=== PATIENT | female | born 1975 | race American Indian/Alaskan Native ===

== ENCOUNTER 2017-04-23 21:42 | Inpatient (IN) | payer MEDICAID ==
[2017-04-23 22:13] LABS: Basophils % (Auto) 0.7 % (0.0-1.8); Eosinophils % (Auto) 1.8 % (0.0-4.3); Hematocrit 31.9 % (30.3-42.9); Hemoglobin 10.4 gm/dl (10.1-14.3); Mean Corpuscular HGB Conc 33 % (30-34); Mean Corpuscular Hemoglobin 26 pg (28-32); Mean Corpuscular Volume 80 fl (79-97); Platelet Count 351 K/mm3 (140-440); Red Cell Distribution Width 15.3 % (13.2-15.2); White Blood Count 5.5 K/mm3 (4.5-11.0)
[2017-04-23 22:18] LABS: INR 0.92 (0.87-1.13); Partial Thromboplastin Time 28.5 Sec. (24.2-36.6)
[2017-04-23 22:31] LABS: Creatine Kinase 63 units/L (30-135)
[2017-04-23 22:36] LABS: Creatine Kinase MB < 1.0 ng/mL (0.0-4.0)
--- NOTE | 2017-04-23 22:41 | Emergency Department Report ---
ED General Adult HPI - General Chief complaint: Neuro Symptoms/Deficit Stated complaint: BODY PAIN Time Seen by Provider: 04/23/17 22:18 Source: patient, EMS (ems notes not available at time of chart dictation), RN notes reviewed, old records reviewed Mode of arrival: Wheelchair Limitations: Physical Limitation - History of Present Illness Initial comments: This is a 41-year-old female. She has a past medical history of multiple sclerosis, chronic left-sided weakness, noncompliant with outpatient follow-up, seizure disorder, diabetes, hypertension. As per review of old charts, patient has a chronic left-sided cranial nerve 4 palsy/dysfunction, and chronic left-sided weakness and numbness. The patient is brought to the hospital by EMS for seizure versus syncope versus sclerosis flare and exacerbation. The patient reports that at 6:00 in the morning, her legs give out on her, and she feels like her left side is weaker than her right side, and weaker than baseline. The patient further reports that her symptoms started at 6:00 in the morning, not in o'clock in the evening. She also describes visual loss in left eye. She denies chest pain, shortness of breath, abdominal pain, irritative/ obstructive urinary symptoms. -: Gradual Location: eyes, left, upper extremity, lower extremity Consistency: constant Improves with: none Worsens with: none Associated Symptoms: weakness - Related Data Home Medications Medication Instructions Recorded Confirmed Last Taken Dimethyl Fumarate [Tecfidera] 1 each PO 01/20/14 01/20/14 Unknown FLUoxetine HCL [PROzac] 40 mg PO QDAY 01/20/14 01/20/14 Unknown predniSONE [Deltasone] 01/20/14 01/20/14 Unknown Previous Rx's Medication Instructions Recorded Last Taken Type Triamter/Hctz 37.5-25 mg 1 tab PO QDAY #30 tablet 01/22/14 Unknown Rx [Maxzide-25] traZODone [Desyrel] 100 mg PO HS #20 tablet 01/22/14 Unknown Rx HYDROcodone/APAP 5-325 [[place]amar 1 each PO Q8H PRN #15 tablet 02/21/17 Unknown Rx 5-325 mg TAB] Levofloxacin [Levaquin TAB] 500 mg PO Q24HR #3 tablet 02/21/17 Unknown Rx levETIRAcetam [Keppra TAB] 1,500 mg PO BID #180 tablet 02/21/17 Unknown Rx Allergies Allergy/AdvReac Type Severity Reaction Status Date / Time Penicillins Allergy Rash Verified 01/20/14 03:00 ED Review of Systems ROS: Stated complaint: BODY PAIN Other details as noted in HPI Constitutional: malaise Eyes: vision change ENT: denies: throat pain Respiratory: denies: cough Cardiovascular: denies: chest pain Gastrointestinal: denies: abdominal pain Genitourinary: denies: dysuria Musculoskeletal: back pain Neurological: weakness, numbness, abnormal gait ED Past Medical Hx - Past Medical History Previous Medical History?: Yes Hx Hypertension: Yes Hx Congestive Heart Failure: No Hx Diabetes: Yes Hx Seizures: Yes Hx Psychiatric Treatment: Yes (Schizophrenia) Hx Asthma: No Hx COPD: No Hx HIV: No Additional medical history: MS - Social History Smoking Status: Former Smoker - Medications Home Medications: Home Medications Medication Instructions Recorded Confirmed Last Taken Type Dimethyl Fumarate [Tecfidera] 1 each PO 01/20/14 01/20/14 Unknown History FLUoxetine HCL [PROzac] 40 mg PO QDAY 01/20/14 01/20/14 Unknown History predniSONE [Deltasone] 01/20/14 01/20/14 Unknown History Triamter/Hctz 37.5-25 mg 1 tab PO QDAY #30 tablet 01/22/14 Unknown Rx [Maxzide-25] traZODone [Desyrel] 100 mg PO HS #20 tablet 01/22/14 Unknown Rx HYDROcodone/APAP 5-325 [[place]amar 1 each PO Q8H PRN #15 tablet 02/21/17 Unknown Rx 5-325 mg TAB] Levofloxacin [Levaquin TAB] 500 mg PO Q24HR #3 tablet 02/21/17 Unknown Rx levETIRAcetam [Keppra TAB] 1,500 mg PO BID #180 tablet 02/21/17 Unknown Rx ED Physical Exam - General Limitations: Physical Limitation General appearance: alert, in no apparent distress - Head Head exam: Present: atraumatic, normocephalic - Eye Eye exam: Present: normal appearance, other (extraocular movements are intact in the right eye. When I examine the left eye, the patient closes it.There is a cranial nerve palsy noted in the left eye. Patient reports no visual acuity intact to finger counting, color perception or reading and a close distance in the left eye.) - ENT ENT exam: Present: normal orophraynx, mucous membranes moist - Neck Neck exam: Present: normal inspection, full ROM. Absent: tenderness, meningismus - Respiratory Respiratory exam: Present: normal lung sounds bilaterally. Absent: respiratory distress, wheezes, rales, rhonchi, stridor, chest wall tenderness - Cardiovascular Cardiovascular Exam: Present: regular rate, normal rhythm, normal heart sounds. Absent: bradycardia, tachycardia, irregular rhythm, systolic murmur, diastolic murmur, rubs, gallop - GI/Abdominal GI/Abdominal exam: Present: soft, normal bowel sounds. Absent: distended, tenderness, guarding, rebound, rigid, pulsatile mass - Extremities Exam Extremities exam: Present: normal inspection, normal capillary refill. Absent: tenderness - Back Exam Back exam: Present: normal inspection. Absent: tenderness - Neurological Exam Neurological exam: Present: alert, oriented X3, motor sensory deficit (4 out of 5 strength right upper, right lower extremity. There is 3 out of 5 strength left upper, left lower extremity. Sensation intact to light touch in the bilateral upper and lower extremities, although decreased on the left side.) - Psychiatric Psychiatric exam: Present: normal affect, normal mood - Skin Skin exam: Present: warm, dry, intact, normal color. Absent: rash ED Course Vital Signs 04/23/17 04/23/17 04/23/17 22:00 22:20 22:30 Temperature 98.7 F Pulse Rate 67 70 61 Respiratory 18 16 14 Rate Blood Pressure 160/105 153/93 O2 Sat by Pulse 99 100 100 Oximetry 04/23/17 04/23/17 22:45 23:01 Temperature Pulse Rate 67 74 Respiratory 16 20 Rate Blood Pressure 153/93 134/71 O2 Sat by Pulse 100 99 Oximetry ED Medical Decision Making - Lab Data Result diagrams: 04/23/17 Unknown 04/23/17 23:37 - EKG Data -: EKG Interpreted by Me EKG shows normal: sinus rhythm, axis, intervals, QRS complexes, ST-T waves - EKG Data 04/24/17 01:07 Normal sinus, 62 bpm, normal intervals, normal axis, not morphologically consistent with STEMI - Radiology Data Radiology results: report reviewed, image reviewed interpreted by me: X-ray is negative X-ray of the chest is negative. Noncontrast CT scan of the brain and cervical spine are negative. - Medical Decision Making Differential diagnosis: Chronic multiple sclerosis, seizure, syncope, acute coronary syndrome, structural cardiac disease, transient ischemic attack, stroke Assessment and plan: 41-year-old female with multiple sclerosis, has chronic left-sided cranial nerve for palsy, chronic left-sided weakness, known to be noncompliant with outpatient follow-up. Had an EEG at this facility February 2017 which was negative. I highly suspect that the patient's symptoms are consistent with her chronic poorly managed multiple sclerosis. However, she endorses that she is unable to walk. She does have appropriate strength in her right upper extremity and right lower extremity, at her neurologic examination in the left hemibody appears to be unchanged when compared to prior examination. Highly doubt epidural compression syndrome at this time. Case was discussed with consulting neurologist at [place], Dr. Brown, who is highly suspicious and doubtful that the patient is having an acute multiple sclerosis flare/exacerbation. She recommends an MRI of the cervical spine and brain. These are ordered. Urinalysis not consistent with urinary tract infection, x-ray the chest not consistent with pneumonia. Clinical picture is most likely consistent with probably manage chronic medical issues. Patient presents more than 4.5 hours after symptoms, and her exam appears to be chronically unchanged, therefore she is not a TPA candidate, and I highly doubt CVA. Highly doubt syncope as well. However, given clinical ambiguity, patient will be admitted for further evaluation and management. The case is presented to the Hospital physician, Dr. Lilly, who accepts the patient to his service. Critical care attestation.: If time is entered above; I have spent that time in minutes in the direct care of this critically ill patient, excluding procedure time. ED Disposition Clinical Impression: Seizure, Syncopal episodes, Left-sided weakness Disposition: 09 OP ADMIT IP TO THIS HOSP Is pt being admited?: Yes Does the pt Need Aspirin: Yes Condition: Good Instructions: Syncope (ED)
--- NOTE | 2017-04-23 22:49 | Cat Scan Report ---
FINAL REPORT EXAM: CT HEAD/BRAIN WO CON HISTORY: suspected stroke TECHNIQUE: CT of the head was performed. No intravenous contrast was administered. PRIORS: None. FINDINGS: Mild ischemic change in the white matter. There is no evidence of intracranial hemorrhage. There is no edema, mass effect or midline shift. There are no abnormal extra-axial fluid collections. The ventricles are appropriate for brain volume. There is no skull fracture seen. The visualized aspects of the sinuses are clear. IMPRESSION: There is no acute intracranial abnormality identified.
[2017-04-23 23:23] LABS: Bilirubin,Urine NEG (Negative); Blood,Urine NEG (Negative); Granular Casts,Urine 2 /LPF; Ketones,Urine NEG (Negative); Leukocyte Esterase,Urine TR (Negative); Mucus,Urine FEW /HPF; Nitrite,Urine NEG (Negative); Protein,Urine <15 mg/dL mg/dL (Negative)
[2017-04-24 00:08] LABS: BUN/Creatinine Ratio 21.66; Blood Urea Nitrogen 13 mg/dL (7-17); Calcium 8.4 mg/dL (8.4-10.2); Carbon Dioxide 22 mmol/L (22-30); Chloride 104.8 mmol/L (98-107); Glucose 87 mg/dL (65-100); Sodium 141 mmol/L (137-145)
--- NOTE | 2017-04-24 00:10 | Cat Scan Report ---
FINAL REPORT PROCEDURE: CT CERVICAL SPINE WO CON TECHNIQUE: Computerized tomography of the cervical spine was performed from the skull base to T1 without contrast material. HISTORY: fall weakness COMPARISON: No prior studies are available for comparison. FINDINGS: No fracture or subluxation is visualized. The prevertebral soft tissues appear normal. Mild anterior osteophytic spurring is seen at the C4-C5 through C7-T1 level. No focal disc herniation or spinal stenosis is identified. Posterior elements are intact. IMPRESSION: Mild degenerative disc disease as described. No fracture or subluxation is identified..
[2017-04-24 00:14] LABS: Anion Gap 18 mmol/L; Potassium 4.2 mmol/L (3.6-5.0)
[2017-04-24] MEDS ORDERED: KEPPRA PO ONE (00:17)
[2017-04-24] MEDS ORDERED: BABY ASPIRIN PO ONE (01:11)
[2017-04-24] MEDS ORDERED: TYLENOL PO PRN (01:54)
[2017-04-24] MEDS ORDERED: ATIVAN IV PRN (01:58)
[2017-04-24] MEDS: NACL 0.9% 1000 ML 1,000 ML IV SCH (03:37)
[2017-04-24] MEDS ORDERED: D50W (25GM) Syringe IV PRN (04:49)
--- NOTE | 2017-04-24 05:53 | History and Physical Report ---
CHIEF COMPLAINT: Seizure attack, other complaints include body pain and syncope. HISTORY OF PRESENT ILLNESS: The patient is a 41-year-old female brought to the Emergency Room by EMS after she states she had seizure attack in her house around the kitchen area. She said she was walking towards the kitchen when her legs gave up and she thought she passed out and had seizure attack. The patient said she felt weak on her left side where she had chronic left-sided weakness. There was no history of chest pain. No history of fever or chills. No history of nausea or vomiting. The patient also gives history of visual loss involving the left eye and also complained of generalized weakness. PAST MEDICAL HISTORY: Pertinent for hypertension, diabetes mellitus, seizure disorder, schizophrenia. Also, the patient has past medical history of multiple sclerosis. PAST SURGICAL HISTORY: Not well known. FAMILY HISTORY: Noncontributory. SOCIAL HISTORY: The patient used to smoke cigarettes and does not smoke cigarette currently. She does not use illicit drugs and does not drink alcohol. MEDICATIONS: The patient's medications include dimethyl fumarate 1 by mouth, frequency unknown; Prozac 40 mg by mouth daily; prednisone, dose frequency unknown; Maxzide 25 one by mouth daily; trazodone 100 mg at bedtime, [place] 5/325 mg 1 by mouth every 8 hours as needed for pain, Levaquin 500 mg every day, Keppra 1500 mg by mouth twice daily. ALLERGIES: THE PATIENT IS ALLERGIC TO PENICILLIN. REVIEW OF SYSTEMS: CONSTITUTIONAL: There is no fever, no chills, no diaphoresis. HEENT: There is no headache or sore throat. CARDIOVASCULAR: There is no chest pain, no orthopnea. RESPIRATORY: There is no shortness of breath or cough. GASTROINTESTINAL: No nausea, no vomiting, no abdominal pain, diarrhea or constipation. NEUROLOGICAL: Seizure attack at present, syncopal attack noted. Generalized weakness noted and no change in mental status. MUSCULOSKELETAL: Generalized body pain noted. No joint swelling. DERMATOLOGICAL: There is no skin rash. No itching. GENITOURINARY: There is no dysuria, hematuria, or flank pain. Rest of system review is normal. PHYSICAL EXAMINATION: GENERAL: At the time of exam, the patient was found to be alert, oriented x 3 and not in acute distress. VITAL SIGNS: The patient's vital signs shows normal temperature, pulse of 75, respirations 16, O2 sat of 99% and blood pressure of 111/71. HEENT: Shows pupils to be equal, round, reactive to light and accommodating. Extraocular muscles are intact. NECK: Supple with no JVD or carotid bruit. CARDIOVASCULAR: Show first and second heart sounds with no gallops or murmur. RESPIRATORY: Showed good air entry on both sides of the lung with no abnormal breath sounds. GASTROINTESTINAL: Show abdomen to be full, soft, nontender with no organomegaly or rigidity. NEUROLOGIC: Shows no focal deficit. MUSCULOSKELETAL: Show no joint pain or swelling. DERMATOLOGICAL: Show no skin rash. GENITOURINARY: Showing no costovertebral angle tenderness. PERTINENT LABORATORY AND IMAGING STUDIES: The patient had CT of the head done that shows no acute intracranial lesion. Also, the patient had CT of the cervical spine done that shows degenerative joint disease, otherwise no fracture. The patient had chest x-ray done with no report of any acute lesion. Lab results, the patient's CBC showed normal white count, normal hemoglobin and normal hematocrit and chemistry was unremarkable. DIAGNOSES: 1. Seizure attack. 2. Syncope. 3. Multiple sclerosis. PLAN: The patient will be admitted to medical floor. We will have MRI of the brain without contrast done in the morning. The patient will have Accu-Chek before meals and at bedtime followed by low-dose sliding scale using regular insulin. The patient will be on neuro checks q. 4 hours and will be on Tylenol 650 mg every 4 hours as needed for fever and headache. The patient's DVT prophylaxis will be through heparin 5000 units subcutaneous q. 12 hours and the patient will be on Keppra 1500 mg by mouth twice daily. The patient will also be on morphine 2 mg IV q. 4 hours for pain and IV Zofran 4 mg every 6 hours for nausea and vomiting and we will have MRI of the cervical spine that is also recommended by the neurologist and was consulted by the Emergency Room doctor. The patient's home medications will be reconciled and started accordingly. The patient's diet will be carbohydrate restricted diet as well as 2 g sodium diet. JOB# [id number] OCN/NTS
--- NOTE | 2017-04-24 07:14 | XRay Report ---
Single view chest: History: MS flair. Findings: Normal cardiomediastinal silhouette. Trachea is midline. No consolidation, pneumothorax or pleural effusion. Impression: No acute cardiopulmonary findings.
--- NOTE | 2017-04-24 07:47 | Admit Criteria Form ---
Admission Criteria Documentation: NEUROLOGY GRG Clinical Indications for Admission to Inpatient Care (Place ' X' for any and all applicable criteria): Hospital admission is needed for appropriate care of the patient because of 1 or more of the following: [ ]I. Encephalitis [ ]II. Severe [employer] infections indicated by 1 or more of the following(1)(2)(3) : [ ]a) Intracranial abscess [ ]b) Spinal abscess or myelitis [ ]c) Tuberculous or other nonbacterial, nonviral [employer] infection(8) [ ]III. Vasculitis and 1 or more of the following(14)(15): []a) Altered mental status that is severe or persistent or other acute neurologic change []b) Psychosis []c) Seizure [ ]IV. Status epilepticus or repetitive seizures not controlled with emergent treatment [A] (7)(8) [ ]V. Altered mental status that is severe or persistent [ ]. Transient alteration in consciousness with high-risk etiology; examples include (12)(13): [ ]a) Cardiovascular source [ ]b) Cataplexy [ ]VII. Cerebral aneurysm requiring ANY ONE of the following(14): [ ]a) IV antihypertensives or vasoactive agents [ ]b) Sedation and analgesia for suspected leak [ ]c) Need for external ventricular drainage and cerebral perfusion pressure monitoring [ ]d) Emergent evaluation to determine need for surgical clipping or endovascular coiling by interventional radiology. If surgery is required ( Also use Craniotomy, Supratentorial, for Surgery of Bleeding Intracranial Aneurysm (for bleeding aneurysm) or Craniotomy, Supratentorial (for nonbleeding aneurysm) as appropriate. [ ]VIII. New-onset severe neurologic symptom requiring inpatient care indicated by ANY ONE of the following: [ ]a) Aphasia(15) [ ]b) Weakness (grade 3 or less) [ ]c) Paralysis (eg, hemiplegia) [ ]d) Spasticity(16) [ ]e) Dystonia [ ]e) Ataxia(17) [ ]f) Amnesia(18) [ ]g) Involuntary movements(19) [ ]h) Vertigo [ ] Visual loss [ ]i) Other severe neurologic finding (eg, papilledema, mass effect on imaging, myoclonus not treatable at alternative level of care (eg, observation care) [ ]IX. Guillain-[place] syndrome(20) [ ]X. Myasthenia gravis crisis or inpatient monitoring need as indicated by 1 or more of the following(21): [ ]a) Intensive treatment (eg, course of plasmapheresis) with inadequate outpatient situation to monitor patients status [ ]b) Inadequate airway protection [ ]c) Respiratory insufficiency requiring intubation or inpatient. monitoring [ ]d) Progressive dysphagia with failure to thrive [ ]XI. Multiple sclerosis or other acute demyelinating disease requiring inpatient care as indicated by 1 or more of the following (22)(23): [ ]a) Acute severe deterioration requiring inpatient treatment (eg, IV steroids, plasmapheresis, close observation) [ ]b) Acute complication requiring inpatient care (eg, sepsis, severe decubitus, aspiration) [ ]XII.Parkinson disease requiring inpatient care (Also use Optimal Recovery Care Criteria or General Recovery Criteria as appropriate) indicated by 1 or more of the following(25): [ ]a) Infection (eg, aspiration pneumonia) not treatable at alternative level of care [ ]b Dehydration that is severe or persistent [ ]c) Life-threatening agitation or psychotic behavior not treatable on emergency, observation care, or alternative level (eg, residential) basis [ ]d) Severe medication withdrawal effects (eg, freezing, neuroleptic malignant syndrome) not responsive to emergency and observation care treatment ( as appropriate) [ ]e) Other severe manifestation not treatable at alternative level of care [ ]XII. Amyotrophic lateral sclerosis with inpatient care needs as indicated by ANY ONE of the following(26): [ ]a) Acute complications (eg, aspiration pneumonia, sepsis ) requiring inpatient care ( see other optimal Recovery Guideline as appropriate) [ ]b) Dehydration that is severe persistent AND artificial support desired [ ]c) Inadequate airway protection AND artificial support desired [ ]d) Severe ventilatory insufficiency AND artificial support desired [ ]XIII. Myasthenia gravis crisis or inpatient monitoring need as indicated by 1 or more of the following(21): [] a) Inadequate airway protection []b) Respiratory insufficiency requiring intubation or inpatient monitoring []c) Progressive dysphagia with failure to thrive []d) Intensive treatment (e.g., course of plasmapheresis) with inadequate outpatient situation to monitor patients status [ ]XIV. Multiple sclerosis or other acute demyelinating disease requiring inpatient care indicated by 1 or more of the following[C](36)(43)(44)(45)(46): []a) Acute severe deterioration requiring inpatient treatment (eg, IV steroids, plasmapheresis, close observation) []b) Acute complication requiring inpatient care (eg, sepsis, severe decubitus, aspiration) [ ]XV. Intracranial hypertension (e.g., pseudotumor cerebri) requiring inpatient care (e.g., acute visual loss, inadequate oral intake) (47)(48)(49) [ ]XVI. Parkinson disease requiring inpatient care (Also use Optimal Recovery Care Criteria or General Recovery Criteria as appropriate) indicated by 1 or more of the following(25): [] a) Infection (e.g., aspiration pneumonia) not treatable at alternative level of care []b) Volume depletion not responsive to emergency and observation care treatment (as appropriate) []c) Life-threatening agitation or psychotic behavior not treatable on emergency, observation care, or alternative level (e.g., residential) basis []d) Severe medication withdrawal effects (e.g., freezing, neuroleptic malignant syndrome) not responsive to emergency and observation care treatment (as appropriate) []e) Other severe manifestation not treatable at alternative level of care [ ]XVII. Amyotrophic lateral sclerosis with inpatient care needs as indicated by1 or more of the following(42): []a) Acute complications (eg, aspiration pneumonia, sepsis) requiring inpatient care (see other Optimal Recovery Guideline or General Recovery Guideline as appropriate) []b) Dehydration that is severe or persistent AND artificial support desired []c) Inadequate airway protection AND artificial support desired []d) Severe ventilatory insufficiency AND artificial support desired [ ]XVIII. Severe myopathy, neuropathy, or other neuromuscular disease indicated by 1 or more of the following(42)(52)(53)(54): []a ) New-onset severe diffuse weakness (eg, strength 3/5 or less) []b) Severe dysphagia []c) Dyspnea at rest or with minimal exertion (new) []d) Inadequate airway protection []e) Inadequate ventilation indicated by 1 or more of the following : i) Partial pressure of carbon dioxide greater than 44 mm Hg ( 5.9 kPa) (new) ii) Reduced peak expiratory flow rate (new) iii) Vital capacity less than 50% of predicted (less than 15 mL/kg) iv) Peak inspiratory force less negative than -30 cm H2O (- 2942 Pa) [ ]XVII.Complications of congenital or degenerative disease (eg, infection, seizures, dehydration, injury) not responsive to emergency and observation care treatment (as appropriate ) [C](16)(29)(30) [ ]XVIII.Suspected or confirmed nerve or muscle toxic injury, including ANY ONE of the following: [ ]a) Rhabdomyolysis(31) i) Acute renal failure ii) Dehydration that is severe or persistent iii) Altered mental status that is severe or persistent iv) Electrolyte abnormality that remains after emergency or observation level care ( as appropriate) [ ]b) Botulism(32) [ ]c) Other severe toxin-induced sign or symptom [ ]XIX. Neurologic trauma requiring inpatient treatment (medical) indicated by ANY ONE of the following(33)(34): [ ]a) Vital signs or neurologic signs more frequently than every 4 hours [ ]b) Hyperosmolar therapy [ ]c) Respiratory monitoring [ ]d) Intracranial pressure monitoring and treatment [ ]e) Stabilization and immobilization device placement (eg, braces, body jacket) [ ]f) Intubation & mechanical ventilation for airway protection or therapeutic hyperventilation [ ]g) Other treatment or monitoring needed that requires inpatient level of care [ ]XX.Complications of neurologic devices (eg, ventricular shunt, neurostimulator) requiring 1 or more of the following(35)(36): [ ]a) IV antibiotics with monitoring while awaiting culture results [ ]b) Monitoring for hydrocephalus [ X]XXI. Neurology condition symptom, or finding for which emergency and observation care have failed or are not considered appropriate. See General Criteria: Observation Care ISC, General Admission Criteria GRG, or Pediatric General Admission Criteria GRG guideline as appropriate. The original [facility] [employer] content created by [employer] [facility] has been revised. The portions of the content which have been revised are identified through the use of italic text or in bold, and [facility] has neither reviewed nor approved the modified material. All other unmodified content is copyright [facility] Please see references footnoted in the original [facility] edition 2016 Admission Criteria Met: Yes
[2017-04-24] MEDS: HEPARIN SUB-Q SCH ×2 (09:33→22:08)
[2017-04-24] MEDS: KEPPRA PO SCH ×2 (09:33→22:07)
[2017-04-24] MEDS ORDERED: KEPPRA PO SCH (10:00)
[2017-04-24] MEDS ORDERED: Fluarix Quad 2017-2018(36 MOS+) IM ONE (12:00)
[2017-04-24] MEDS: MORPHINE IV PRN ×2 (13:32→22:12)
--- NOTE | 2017-04-24 16:35 | Event Note ---
Date: 04/24/17 Patient seen and examined. The patient is brought to the hospital by EMS for seizure versus syncope versus sclerosis flare and exacerbation. We'll continue current management and plan as dictated in H&P.
--- NOTE | 2017-04-24 18:13 | Magnetic Resonance Report ---
FINAL REPORT PROCEDURE: MR CERVICAL SPINE WO CON TECHNIQUE: Magnetic resonance imaging of the cervical spine was performed using standard pulse sequences without contrast material. HISTORY: Weakness. History of multiple sclerosis. Recent fall. COMPARISON: CT scan cervical spine 04/23/2017 FINDINGS: Today's study is limited due to motion artifact. The patient was unable to lie still for the exam. Sequences were repeated. The patient was unable to tolerate further imaging. There are patchy areas of increased T2 signal seen in the brainstem and extending into the cervical cord. This is fairly extensive best visualized on sagittal STIR images. The largest extends craniocaudal over 2.4 centimeters by 3.8 millimeters. Given the history of multiple sclerosis I suspect these represent fairly large and diffuse demyelinating plaques. Region of the foramina magnum is unremarkable. The prevertebral soft tissues appear normal. There are mild disc bulge is visualized at C3-C4, C5-C6 and C7-T1 obscuring portions of the anterior epidural space without cord compression or spinal stenosis. The neural foramina appear adequate. IMPRESSION: Multiple patchy areas of increased T2 signal are seen in the brainstem and extending into the cervical cord as described. Given history of multiple sclerosis I suspect these represent fairly large and diffuse demyelinating plaques. Mild disc bulges are present as described above. No focal disc herniation spinal stenosis or cord compression is seen.
[2017-04-25] MEDS: KEPPRA PO SCH ×2 (11:21→22:12)
[2017-04-25] MEDS: HEPARIN SUB-Q SCH ×2 (11:22→22:12)
--- NOTE | 2017-04-25 12:08 | Consultation ---
History of Present Illness - Reason for Consult Consult date: 04/25/17 multiple sclerosis - History of Present Illness she was under the care of Dr. Jj in [place] and she also saw Dr. Aranda in past she has know diagnosis of multiple sclerosis and now has expanding spinal cord lesions seen on the c-spine called and spoke to sister via cell phone she used to be on Glinyia also seizure meds Medications and Allergies Allergies Allergy/AdvReac Type Severity Reaction Status Date / Time Penicillins Allergy Rash Verified 01/20/14 03:00 Home Medications Medication Instructions Recorded Confirmed Last Taken Type Dimethyl Fumarate [Tecfidera] 1 each PO DAILY 01/20/14 04/24/17 1 Day Ago History FLUoxetine HCL [PROzac] 40 mg PO QDAY 01/20/14 04/24/17 1 Day Ago History Triamter/Hctz 37.5-25 mg 1 tab PO QDAY #30 tablet 01/22/14 04/24/17 1 Day Ago Rx [Maxzide-25] traZODone [Desyrel] 100 mg PO HS #20 tablet 01/22/14 04/24/17 1 Day Ago Rx levETIRAcetam [Keppra TAB] 1,500 mg PO BID #180 tablet 02/21/17 04/24/17 1 Day Ago Rx Active Meds: Active Medications Acetaminophen (Tylenol) 650 mg PO Q4H PRN PRN Reason: For Pain/Fever/Headache Dextrose (D50w (25gm)) 50 ml IV PRN PRN PRN Reason: Hypoglycemia Heparin Sodium (Porcine) (Heparin) 5,000 unit SUB-Q Q12HR ROEL Last Admin: 04/25/17 11:22 Dose: 5,000 unit Sodium Chloride (Nacl 0.9% 1000 Ml) 1,000 mls @ 100 mls/hr IV DIRECT ROEL Last Admin: 04/24/17 03:37 Dose: 100 mls/hr Insulin Human Regular (Novolin R) 0 units SUB-Q AC ROEL PRN Reason: Protocol Last Admin: 04/25/17 09:22 Dose: Not Given Insulin Human Regular (Novolin R) 0 units SUB-Q QHS ROEL PRN Reason: Protocol Last Admin: 04/24/17 22:07 Dose: Not Given Levetiracetam (Keppra) 1,500 mg PO BID ROEL Last Admin: 04/25/17 11:21 Dose: 1,500 mg Lorazepam (Ativan) 1 mg IV Q2H PRN PRN Reason: Seizures Morphine Sulfate (Morphine) 2 mg IV Q4H PRN PRN Reason: Pain, Moderate (4-6) Last Admin: 04/24/17 22:12 Dose: 2 mg Ondansetron HCl (Zofran) 4 mg IV Q6H PRN PRN Reason: Nausea And Vomiting Exam - Constitutional Vitals: Temp Pulse Resp BP Pulse Ox 99.2 F 99 H 18 143/100 99 04/25/17 08:00 04/25/17 08:00 04/25/17 08:00 04/25/17 08:00 04/25/17 08:00 Results - Labs CBC & Chem 7: 04/23/17 Unknown 04/23/17 23:37
[2017-04-25] MEDS: MORPHINE IV PRN (13:16)
--- NOTE | 2017-04-25 15:10 | Magnetic Resonance Report ---
MRI OF THE BRAIN WITHOUT CONTRAST: HISTORY: Seizure, multiple sclerosis PROCEDURE: Multiplanar, multisequence MR imaging of the brain without IV contrast was performed. FINDINGS: There are moderate to severe T2 signal abnormalities in the periventricular white matter for this patient's age. Multiple pericallosal lesions are suspected bilaterally primarily within the frontal and parietal lobes. There is no evidence for acute ischemia, hemorrhage, mass or extra-axial fluid collection. The midline structures are central. The basal cisterns are patent. Normal ventricular size. The orbital cavities and sella turcica demonstrate no abnormality. The visualized paranasal sinuses and mastoid air cells are well aerated. IMPRESSION: Findings consistent with multiple sclerosis.
--- NOTE | 2017-04-25 16:23 | Progress Note ---
Assessment and Plan Acute flare of MS - noted MRI brain and neck results - appreciate neuro consult - placed on steroid - will wait for outpt medical records from her neurology DM type 2 - conr ada diet and insulin coverage HTN, benign - cont home meds Seizure disorder - cont keppra Schizophrenia - at base line, no psychosis - cont home meds Brief history: This is a 41-year-old female. She has a past medical history of multiple sclerosis, chronic left-sided weakness, noncompliant with outpatient follow-up, seizure disorder, diabetes, hypertension. As per review of old charts, patient has a chronic left-sided cranial nerve 4 palsy/dysfunction, and chronic left- sided weakness and numbness. The patient is brought to the hospital by EMS for seizure versus syncope versus sclerosis flare and exacerbation. Subjective Date of service: 04/25/17 Interval history: pt seen and examined denies any new complaints MRI brain and MRI neck suggestive for MS neurology started on steroids Objective - Constitutional Vitals: Vital Signs - 12hr 04/25/17 04/25/17 04/25/17 05:20 08:00 11:30 Temperature 97.8 F 99.2 F 98.9 F Pulse Rate 79 99 H 72 Respiratory 18 18 18 Rate Blood Pressure 133/86 143/100 187/103 O2 Sat by Pulse 100 99 99 Oximetry General appearance: Present: no acute distress, well-nourished - EENT Eyes: PERRL, EOM intact ENT: hearing intact, clear oral mucosa Ears: bilateral: normal - Neck Neck: supple, normal ROM - Respiratory Respiratory effort: normal Respiratory: bilateral: CTA - Cardiovascular Rhythm: regular Heart Sounds: Present: S1 & S2. Absent: gallop, rub Extremities: pulses intact, No edema, normal color, Full ROM - Gastrointestinal General gastrointestinal: Present: soft, non-tender, non-distended, normal bowel sounds - Integumentary Integumentary: clear, warm, dry - Musculoskeletal Musculoskeletal: 1, strength equal bilaterally - Neurologic Neurologic: other (left sided weakness) - Psychiatric Psychiatric: memory intact, appropriate mood/affect, intact judgment & insight - Labs CBC & Chem 7: 04/23/17 Unknown 04/23/17 23:37 - Imaging and cardiology MRI - head: report reviewed
[2017-04-26] MEDS: MORPHINE IV PRN ×4 (01:18→21:49)
[2017-04-26] MEDS: NACL 0.9% 1000 ML 1,000 ML IV SCH ×2 (01:19→16:40)
[2017-04-26] MEDS: ZOFRAN IV PRN ×2 (08:25→16:10)
[2017-04-26] MEDS: HEPARIN SUB-Q SCH ×2 (09:26→21:48)
[2017-04-26] MEDS: KEPPRA PO SCH ×2 (09:26→21:44)
[2017-04-26] MEDS ORDERED: NON-FORMULARY (Fluoxetine Hcl [Prozac] 40 MG) PO SCH (10:15)
[2017-04-26] MEDS ORDERED: DIMETHYL FUMARATE PO SCH (10:15)
[2017-04-26] MEDS: MAXZIDE-25 PO SCH (12:47)
[2017-04-26] MEDS ORDERED: DESYREL PO SCH (22:00)
--- NOTE | 2017-04-26 23:03 | Progress Note ---
Assessment and Plan Acute flare of MS - noted MRI brain and neck results - appreciate neuro consult - placed on steroid 500mg iv qdaily for 3 days - will d/c home tomorrow after her scheduled iv steroid DM type 2 - conr ada diet and insulin coverage HTN, benign - cont home meds Seizure disorder - cont keppra Schizophrenia - at base line, no psychosis - cont home meds Brief history: This is a 41-year-old female. She has a past medical history of multiple sclerosis, chronic left-sided weakness, noncompliant with outpatient follow-up, seizure disorder, diabetes, hypertension. As per review of old charts, patient has a chronic left-sided cranial nerve 4 palsy/dysfunction, and chronic left- sided weakness and numbness. The patient is brought to the hospital by EMS for seizure versus syncope versus sclerosis flare and exacerbation. Subjective Date of service: 04/26/17 Interval history: pt seen and examined denies any new complaints, states feeling better MRI brain and MRI neck suggestive for MS neurology started on steroids from yesterday 500mg iv Objective - Exam Narrative Exam: General appearance: Present: no acute distress, well-nourished - EENT Eyes: PERRL, EOM intact ENT: hearing intact, clear oral mucosa Ears: bilateral: normal - Neck Neck: supple, normal ROM - Respiratory Respiratory effort: normal Respiratory: bilateral: CTA - Cardiovascular Rhythm: regular Heart Sounds: Present: S1 & S2. Absent: gallop, rub Extremities: pulses intact, No edema, normal color, Full ROM - Gastrointestinal General gastrointestinal: Present: soft, non-tender, non-distended, normal bowel sounds - Integumentary Integumentary: clear, warm, dry - Musculoskeletal Musculoskeletal: 1, strength equal bilaterally - Neurologic Neurologic: other (left sided weakness) - Psychiatric Psychiatric: memory intact, appropriate mood/affect, intact judgment & insight - Constitutional Vitals: Vital Signs - 12hr 04/26/17 04/26/17 04/26/17 11:46 15:01 16:10 Temperature 98.7 F 99.0 F Pulse Rate 81 78 Respiratory 18 16 20 Rate Blood Pressure 133/76 138/68 O2 Sat by Pulse 96 Oximetry 04/26/17 20:58 Temperature 99.3 F Pulse Rate 89 Respiratory 18 Rate Blood Pressure 139/81 O2 Sat by Pulse 99 Oximetry - Labs CBC & Chem 7: 04/23/17 Unknown 04/23/17 23:37 Labs: Abnormal lab results 04/26/17 04/26/17 04/26/17 Range/Units 08:06 11:46 14:42 POC Glucose 246 H 243 H 299 H (70-105) 04/26/17 04/26/17 Range/Units 16:08 21:15 POC Glucose 243 H 231 H (70-105)
[2017-04-27] MEDS: NACL 0.9% 1000 ML 1,000 ML IV SCH (08:20)
[2017-04-27 08:21] VITALS: BP 139/81
[2017-04-27] MEDS: MAXZIDE-25 PO SCH (09:24)
[2017-04-27] MEDS: KEPPRA PO SCH (09:25)
[2017-04-27] MEDS: HEPARIN SUB-Q SCH (09:26)
[2017-04-27] MEDS: MORPHINE IV PRN (09:34)
[2017-04-27] MEDS ORDERED: PROzac PO SCH (10:00)
--- NOTE | 2017-04-27 10:55 | Discharge Summary ---
Providers - Providers Date of Admission: 04/24/17 01:48 Date of discharge: 04/27/17 Attending physician: CECI SUN 04/25/17 10:52 Consult to Physician [CONS] Routine Consulting Provider: MARJAN BRAVO Reason For Exam: CVa vs MS Place consult to:: neurology Notified:: OFFICE Phone number called:: [phone] Was contact made?: Yes Time called:: 11:26 04/25/17 10:53 Physical Therapy Evaluation and Treat [CONS] Routine Comment: Reason For Exam: placement Primary care physician: [facility] Hospitalization Condition: Good Disposition: DC-30 STILL A PATIENT Exam - Constitutional Vitals: Temp Pulse Resp BP Pulse Ox 98.0 F 64 16 139/81 100 04/27/17 08:20 04/27/17 08:20 04/27/17 08:20 04/27/17 08:20 04/27/17 08:20 Plan Follow up with: PRIMARY CARE, [Primary Care Provider] - 3-5 Days Prescriptions: predniSONE [Deltasone] 50 mg PO QDAY #5 tab
== END 2017-04-27 15:31 | disposition home or self-care (01) | DRG 60 ==
LOC: ED 21:42 → 4A 04-24 01:48
PROVIDERS: ADMIT Internal Medicine; ATTEND Internal Medicine
DX: G35 Multiple sclerosis (principal); G40.909 Epilepsy, unspecified, not intractable, without status epilepticus; Z88.0 Allergy status to penicillin; E11.9 Type 2 diabetes mellitus without complications; I10 Essential (primary) hypertension; F20.9 Schizophrenia, unspecified; Z87.891 Personal history of nicotine dependence; G52.9 Cranial nerve disorder, unspecified
CPT/HCPCS: 36415; 70450; 70551; 71010; 72125; 72141; 80048; 81001; 82550; 82553; 82962; 84484; 85025; 85610; 85670; 85730; 90686; 93005; 93010; 96374; J1644; J1815; J2270; J2405; J2930; J7030

== ENCOUNTER 2017-05-20 16:35 | Emergency (ER) | payer MEDICAID ==
[2017-05-20] MEDS ORDERED: NORCO 10/325 PO ONE (23:58)
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
[2017-05-21 02:16] VITALS: BP 108/69
--- NOTE | 2017-05-21 02:55 | Emergency Department Report ---
ED General Adult HPI - General Chief complaint: Head Injury Stated complaint: HEAD PAIN Time Seen by Provider: 05/20/17 21:57 Source: patient Mode of arrival: Stretcher Limitations: No Limitations, Physical Limitation, Other - History of Present Illness Initial comments: Patient is a 41-year-old female past medical history of diabetes and high blood pressure who presents status post fall. Patient states that she was in the bathroom and fell on her head. She states she had a very bad headache and loss consciousness for an unknown amount time. Patient also states that her headache is a 8 out 10 located in the back of her head nothing makes it better or worse. She hasn't aching of the headache. Patient denies any vomiting or any changes in vision. Patient is able to walk without any gait disturbance. Severity scale (0 -10): 10 - Related Data Home Medications Medication Instructions Recorded Confirmed Last Taken Ibuprofen [Motrin 800 MG tab] 800 mg PO TID PRN 04/30/17 04/30/17 Unknown traMADol [Ultram 50 MG tab] 50 mg PO Q6H PRN 04/30/17 04/30/17 Unknown Previous Rx's Medication Instructions Recorded Last Taken Type levETIRAcetam [Keppra TAB] 1,500 mg PO BID #180 tablet 02/21/17 1 Day Ago Rx oxyCODONE /ACETAMINOPHEN [Percocet 1 tab PO Q6HR PRN #10 tablet 04/27/17 Unknown Rx 5/325 mg] predniSONE [Deltasone] 60 mg PO QDAY #14 tablet 05/02/17 Unknown Rx Naproxen [Naprosyn] 375 mg PO BID PRN #20 tablet 05/21/17 Unknown Rx Allergies Allergy/AdvReac Type Severity Reaction Status Date / Time Penicillins Allergy Rash Verified 01/20/14 03:00 ED Review of Systems ROS: Stated complaint: HEAD PAIN Other details as noted in HPI Constitutional: denies: chills, fever Eyes: denies: eye pain, eye discharge, vision change ENT: denies: ear pain, throat pain Respiratory: denies: cough, shortness of breath, wheezing Cardiovascular: denies: chest pain, palpitations Endocrine: no symptoms reported Gastrointestinal: denies: abdominal pain, nausea, diarrhea Genitourinary: denies: urgency, dysuria, discharge Musculoskeletal: denies: back pain, joint swelling, arthralgia Skin: denies: rash, lesions Neurological: headache. denies: weakness, paresthesias Psychiatric: denies: anxiety, depression Hematological/Lymphatic: denies: easy bleeding, easy bruising ED Past Medical Hx - Past Medical History Hx Hypertension: Yes Hx Congestive Heart Failure: No Hx Diabetes: Yes Hx Seizures: Yes Hx Psychiatric Treatment: Yes (Schizophrenia) Hx Asthma: No Hx COPD: No Hx HIV: No Additional medical history: Multiple sclerosis - Social History Smoking Status: Former Smoker - Medications Home Medications: Home Medications Medication Instructions Recorded Confirmed Last Taken Type levETIRAcetam [Keppra TAB] 1,500 mg PO BID #180 tablet 02/21/17 04/30/17 1 Day Ago Rx oxyCODONE /ACETAMINOPHEN [Percocet 1 tab PO Q6HR PRN #10 tablet 04/27/17 Unknown Rx 5/325 mg] Ibuprofen [Motrin 800 MG tab] 800 mg PO TID PRN 04/30/17 04/30/17 Unknown History traMADol [Ultram 50 MG tab] 50 mg PO Q6H PRN 04/30/17 04/30/17 Unknown History predniSONE [Deltasone] 60 mg PO QDAY #14 tablet 05/02/17 Unknown Rx Naproxen [Naprosyn] 375 mg PO BID PRN #20 tablet 05/21/17 Unknown Rx ED Physical Exam - General Limitations: No Limitations, Physical Limitation, Other General appearance: alert, in no apparent distress - Head Head exam: Present: atraumatic, normocephalic, other (tenderness to palpation on the occipital area of scalp) - Eye Eye exam: Present: normal appearance - ENT ENT exam: Present: mucous membranes moist - Neck Neck exam: Present: normal inspection - Respiratory Respiratory exam: Present: normal lung sounds bilaterally. Absent: respiratory distress - Cardiovascular Cardiovascular Exam: Present: regular rate, normal rhythm. Absent: systolic murmur, diastolic murmur, rubs, gallop - GI/Abdominal GI/Abdominal exam: Present: soft, normal bowel sounds - Extremities Exam Extremities exam: Present: normal inspection - Back Exam Back exam: Present: normal inspection - Neurological Exam Neurological exam: Present: alert, oriented X3 - Psychiatric Psychiatric exam: Present: normal affect, normal mood - Skin Skin exam: Present: warm, dry, intact, normal color. Absent: rash ED Course Vital Signs 05/20/17 05/20/17 05/20/17 17:26 18:27 18:30 Temperature 98.4 F Pulse Rate 92 H Respiratory 16 Rate Blood Pressure 110/65 125/69 132/76 O2 Sat by Pulse 100 Oximetry 05/20/17 05/20/17 05/20/17 19:00 19:30 20:00 Temperature Pulse Rate Respiratory Rate Blood Pressure 128/70 128/65 134/81 O2 Sat by Pulse Oximetry 05/20/17 05/20/17 05/20/17 22:13 22:15 22:30 Temperature Pulse Rate Respiratory Rate Blood Pressure 135/87 117/68 O2 Sat by Pulse 100 100 99 Oximetry 05/20/17 05/20/17 05/20/17 22:45 23:00 23:15 Temperature Pulse Rate Respiratory Rate Blood Pressure 117/68 121/74 112/70 O2 Sat by Pulse 100 99 97 Oximetry 05/20/17 05/20/17 05/21/17 23:30 23:49 00:00 Temperature Pulse Rate Respiratory Rate Blood Pressure 113/65 105/75 112/73 O2 Sat by Pulse 98 93 99 Oximetry 05/21/17 05/21/17 05/21/17 00:30 00:31 01:01 Temperature Pulse Rate Respiratory 16 Rate Blood Pressure 112/73 114/93 O2 Sat by Pulse 97 100 Oximetry 05/21/17 05/21/17 05/21/17 01:15 01:30 01:45 Temperature Pulse Rate Respiratory Rate Blood Pressure 125/74 115/74 117/73 O2 Sat by Pulse 99 100 99 Oximetry 05/21/17 02:00 Temperature Pulse Rate Respiratory Rate Blood Pressure 108/69 O2 Sat by Pulse 99 Oximetry - Reevaluation(s) Reevaluation #1: 05/21/17 03:02 Patient's pain is better after oral analgesic medication I will send the patient home. ED Medical Decision Making - Lab Data Lab Results 05/20/17 05/21/17 Range/Units 23:15 00:06 HCG, Qual Negative (Negative) Urine HCG, Qual Negative (Negative) - Radiology Data Radiology results: report reviewed, image reviewed CT head: Shows no acute intracranial process - Medical Decision Making Chief medical diagnosis: Subdural hemorrhage Differential diagnosis: Concussion, subarachnoid hemorrhage, skull fracture I will give the patient oral analgesic pain medication and I will get CT head CT head shows no signs of an injury I'll send patient home with concussion precautions. Discussed, patient and she agrees plan additional verbal discharge instructions were given. Critical care attestation.: If time is entered above; I have spent that time in minutes in the direct care of this critically ill patient, excluding procedure time. ED Disposition Clinical Impression: Concussion Qualifiers: Encounter type: initial encounter Loss of consciousness presence/duration: with LOC of 30 min or less Qualified Code(s): S06.0X1A - Concussion with loss of consciousness of 30 minutes or less, initial encounter Headache Qualifiers: Headache type: post-traumatic Headache chronicity pattern: acute headache Intractability: not intractable Qualified Code(s): G44.319 - Acute post- traumatic headache, not intractable Disposition: DC-01 TO HOME OR SELFCARE Is pt being admited?: No Does the pt Need Aspirin: No Condition: Stable Prescriptions: Naproxen [Naprosyn] 375 mg PO BID PRN #20 tablet PRN Reason: Pain Referrals: PRIMARY CARE,MD [Primary Care Provider] - 3-5 Days
== END 2017-05-21 03:51 | disposition home or self-care (01) ==
LOC: ED 16:35
DX: S06.0X1A Concussion with loss of consciousness of 30 minutes or less, initial encounter (principal); G44.319 Acute post-traumatic headache, not intractable; I10 Essential (primary) hypertension; E11.9 Type 2 diabetes mellitus without complications; F20.9 Schizophrenia, unspecified; Z87.891 Personal history of nicotine dependence; Z88.0 Allergy status to penicillin; W18.39XA Other fall on same level, initial encounter; Y93.89 Activity, other specified; Y99.8 Other external cause status; Y92.89 Other specified places as the place of occurrence of the external cause
CPT/HCPCS: 36415; 70450; 81025; 84703

== ENCOUNTER 2017-06-08 20:43 | Emergency (ER) | payer MEDICAID ==
[2017-06-08 21:57] LABS: Hematocrit 36.1 % (30.3-42.9); Hemoglobin 11.6 gm/dl (10.1-14.3); Mean Corpuscular HGB Conc 32 % (30-34); Mean Corpuscular Hemoglobin 26 pg (28-32); Mean Corpuscular Volume 81 fl (79-97); Red Blood Count 4.44 M/mm3 (3.65-5.03); Red Cell Distribution Width 15.5 % (13.2-15.2)
[2017-06-08 21:58] LABS: Platelet Count 552 K/mm3 (140-440); White Blood Count 11.9 K/mm3 (4.5-11.0)
[2017-06-08 23:05] LABS: Blastocytes % (Manual) 0 %
[2017-06-08 23:06] LABS: Diff Status Complete; Ovalocytes 1+; Platelet Estimate Appears Increased
[2017-06-09] LABS: Anion Gap 18 mmol/L; BUN/Creatinine Ratio 18; Blood Urea Nitrogen 16 mg/dL (7-17); Calcium 8.8 mg/dL (8.4-10.2); Carbon Dioxide 23 mmol/L (22-30); Chloride 106.6 mmol/L (98-107); Glucose 105 mg/dL (65-100); Sodium 144 mmol/L (137-145)
[2017-06-09] MEDS ORDERED: TYLENOL PO ONE (02:18)
[2017-06-09] MEDS ORDERED: TYLENOL ONE (02:23)
[2017-06-09] MEDS ORDERED: FLEXERIL ONE (06:32)
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
--- NOTE | 2017-06-09 10:52 | XRay Report ---
AP CHEST: HISTORY: chest pain AP view of the chest demonstrates a normal mediastinal and cardiac contour with clear lungs and normal bony and soft tissue structures. IMPRESSION: Unremarkable AP chest.
[2017-06-09 12:44] VITALS: BP 132/96
== END 2017-06-09 12:44 | disposition home or self-care (01) ==
LOC: ED 20:43
DX: S20.219A Contusion of unspecified front wall of thorax, initial encounter (principal); G35 Multiple sclerosis; J45.909 Unspecified asthma, uncomplicated; I10 Essential (primary) hypertension; E11.9 Type 2 diabetes mellitus without complications; F20.9 Schizophrenia, unspecified; Z88.0 Allergy status to penicillin; X58.XXXA Exposure to other specified factors, initial encounter; Y93.89 Activity, other specified; Y99.8 Other external cause status; Y92.89 Other specified places as the place of occurrence of the external cause
CPT/HCPCS: 36415; 71010; 80048; 84484; 85007; 85025; 93005; 93010; 99285

== ENCOUNTER 2017-06-09 18:20 | Inpatient (IN) | payer MEDICAID ==
[2017-06-09 23:58] LABS: Eosinophils % (Auto) 1.1 % (0.0-4.3); Hematocrit 36.1 % (30.3-42.9); Hemoglobin 11.5 gm/dl (10.1-14.3); Mean Corpuscular HGB Conc 32 % (30-34); Mean Corpuscular Hemoglobin 26 pg (28-32); Mean Corpuscular Volume 80 fl (79-97); Platelet Count 571 K/mm3 (140-440); Red Blood Count 4.51 M/mm3 (3.65-5.03); Red Cell Distribution Width 15.3 % (13.2-15.2); White Blood Count 7.3 K/mm3 (4.5-11.0)
[2017-06-10 00:18] LABS: Anion Gap 17 mmol/L; BUN/Creatinine Ratio 28; Blood Urea Nitrogen 14 mg/dL (7-17); Calcium 8.9 mg/dL (8.4-10.2); Carbon Dioxide 26 mmol/L (22-30); Glucose 75 mg/dL (65-100); Potassium 3.6 mmol/L (3.6-5.0); Sodium 142 mmol/L (137-145)
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
--- NOTE | 2017-06-10 00:41 | Cat Scan Report ---
FINAL REPORT EXAM: CT HEAD/BRAIN WO CON HISTORY: MS, left eye blurred vision (intermittent) TECHNIQUE: Noncontrast serial axial images from skull base to vertex PRIORS: CT head 05/20/2017. FINDINGS: There is mild atrophy. There is no mass effect or midline shift. There are no abnormal intra or extra-axial fluid collections. Lateral ventricles are within normal limits for size and configuration. Basilar cisterns are patent. No acute intracranial hemorrhage is identified. Areas of relative hypodensity are seen in the white matter of the cerebral hemispheres. Atherosclerotic changes are noted. Visualized paranasal sinuses and mastoid air cells are well aerated. No acute osseous abnormality is identified. IMPRESSION: 1. No abnormal mass or acute intracranial hemorrhage is identified. 2. Areas of relative hypodensity are seen in the white matter of the cerebral hemispheres. This is a nonspecific finding. It may be related to multiple sclerosis given the history provided. The appearance is similar to the prior study.
[2017-06-10 01:22] LABS: Bilirubin,Urine NEG (Negative); Blood,Urine MOD (Negative); Ketones,Urine NEG (Negative); Leukocyte Esterase,Urine NEG (Negative); Nitrite,Urine NEG (Negative); Protein,Urine <15 mg/dL mg/dL (Negative); Urobilinogen,Urine < 2.0 mg/dL (<2.0)
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
[2017-06-10] MEDS ORDERED: DULCOLAX PR PRN (02:36)
[2017-06-10] MEDS ORDERED: ZOFRAN IV PRN (02:36)
[2017-06-10] MEDS ORDERED: TYLENOL PO PRN (02:36)
[2017-06-10] MEDS ORDERED: MILK OF MAGNESIA PO PRN (02:36)
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
[2017-06-10] MEDS: PERCOCET 5/325 PO PRN ×2 (05:10→18:04)
--- NOTE | 2017-06-10 10:12 | Event Note ---
Date: 06/10/17 Pt seen and examined will cont current mx and plan as dictated in H and P
[2017-06-10] MEDS: LOVENOX SUB-Q SCH (10:21)
[2017-06-10] MEDS ORDERED: PROAIR IH PRN (13:36)
[2017-06-10] MEDS ORDERED: PROVENTIL IH PRN (14:00)
[2017-06-10] MEDS: DELTASONE PO SCH (16:30)
[2017-06-10] MEDS: KEPPRA PO SCH (21:45)
[2017-06-11 04:40] LABS: Basophils % (Auto) 0.1 % (0.0-1.8); Hematocrit 37.7 % (30.3-42.9); Hemoglobin 12.4 gm/dl (10.1-14.3); Mean Corpuscular HGB Conc 33 % (30-34); Mean Corpuscular Hemoglobin 26 pg (28-32); Mean Corpuscular Volume 80 fl (79-97); Platelet Count 567 K/mm3 (140-440); Red Blood Count 4.73 M/mm3 (3.65-5.03); Red Cell Distribution Width 15.6 % (13.2-15.2); White Blood Count 18.1 K/mm3 (4.5-11.0)
[2017-06-11 04:58] LABS: Anion Gap 16 mmol/L; BUN/Creatinine Ratio 25; Blood Urea Nitrogen 15 mg/dL (7-17); Calcium 9.1 mg/dL (8.4-10.2); Carbon Dioxide 25 mmol/L (22-30); Chloride 104.1 mmol/L (98-107); Glucose 121 mg/dL (65-100); Sodium 141 mmol/L (137-145)
[2017-06-11] MEDS: PERCOCET 5/325 PO PRN (08:20)
[2017-06-11] MEDS: LOVENOX SUB-Q SCH (09:38)
[2017-06-11] MEDS: KEPPRA PO SCH (09:38)
[2017-06-11] MEDS: DELTASONE PO SCH (09:38)
[2017-06-11] MEDS ORDERED: PNEUMOVAX 23 IM ONE (12:00)
[2017-06-11] MEDS ORDERED: Fluarix Quad 2017-2018(36 MOS+) IM ONE (12:00)
--- NOTE | 2017-06-11 15:16 | Discharge Summary ---
Providers - Providers Date of Admission: 06/10/17 02:36 Date of discharge: 06/11/17 Attending physician: CECI SUN Primary care physician: TARYN CABRALES MD Hospitalization Condition: Stable Hospital course: Discharge diagnosis: Blurry vision, possible MS flareup, off medication for 2 days prior admission Multiple sclerosis Hypertension Disposition: DC-01 TO HOME OR SELFCARE Time spent for discharge: 32 minutes Core Measure Documentation - Palliative Care Palliative Care/ Comfort Measures: Not Applicable - Core Measures Any of the following diagnoses?: history only Exam - Physical Exam Narrative exam: Gen. appearance: Patient lying in bed in no acute distress HEENT: Normocephalic/atraumatic, pupils equal round reactive to light, extra alkaline movement intact, no scleral icterus, no JVD or thyromegaly or nodule, neck is supple, mucous membrane moist, no erythema or exudate Heart: S1-S2, regular rate and rhythm Lungs: Clear to auscultation bilateral breathing comfortable Abdomen: Positive bowel sounds, nontender, nondistended, no organomegaly Extremities: No edema, cyanosis, clubbing Neuro:: Oriented 3 , cranial nerves II-12 intact, speech nornal, left leg weakness(chronic) Skin: No rash, nodules, warm dry - Constitutional Vitals: Temp Pulse Resp BP Pulse Ox 98.4 F 86 20 143/90 100 06/11/17 08:15 06/11/17 08:15 06/11/17 08:15 06/11/17 08:15 06/11/17 10:00 Plan Activity: up only with assistance Weight Bearing Status: Non-Weight Bearing Diet: diabetic Additional Instructions: f/u with neurologist in one week Follow up with: PRIMARY CAREMD [Primary Care Provider] - 3-5 Days Prescriptions: ALBUTEROL Inhaler [ProAir HFA Inhaler] 2 puff IH Q4H PRN #1 inhalation PRN Reason: Shortness Of Breath levETIRAcetam [Keppra TAB] 1,500 mg PO BID #180 tablet predniSONE [Deltasone] 60 mg PO QDAY #14 tablet traMADol [Ultram 50 MG tab] 50 mg PO Q6HR PRN #14 tablet PRN Reason: Pain
[2017-06-11 16:52] VITALS: BP 152/89
== END 2017-06-11 18:45 | disposition home or self-care (01) | DRG 60 ==
LOC: ED 18:20 → 3A 06-10 02:36
PROVIDERS: ADMIT Internal Medicine; ATTEND Internal Medicine
PROC: 3E0234Z Introduction of Serum, Toxoid and Vaccine into Muscle, Percutaneous Approach (ICD-10-PCS; principal; 2017-06-11)
DX: G35 Multiple sclerosis (principal); H53.8 Other visual disturbances; F20.9 Schizophrenia, unspecified; E11.9 Type 2 diabetes mellitus without complications; G40.909 Epilepsy, unspecified, not intractable, without status epilepticus; I10 Essential (primary) hypertension; Z23 Encounter for immunization; Z79.899 Other long term (current) drug therapy; Z88.0 Allergy status to penicillin
CPT/HCPCS: 36415; 70450; 71275; 80048; 81001; 85025; 90686; 90732; J1650; J2930; J7050; J7512; Q9967

== ENCOUNTER 2017-09-28 21:21 | Emergency (ER) | payer MEDICAID ==
[2017-09-28 22:46] VITALS: BP 153/103
[2017-09-28] MEDS ORDERED: ASPIRIN PO ONE (22:47)
--- NOTE | 2017-09-28 23:41 | XRay Report ---
FINAL REPORT EXAM: XR CHEST ROUTINE 2V HISTORY: hemoptysis TECHNIQUE: Two view chest PA and lateral PRIORS: None. FINDINGS: Cardiac and mediastinal contours are unremarkable. No focal pulmonary infiltrate is identified. No pleural fluid collection seen. Pulmonary vasculature is unremarkable. IMPRESSION: Negative two-view chest
[2017-09-29 00:48] LABS: Basophils # (Auto) 0.1 K/mm3 (0.0-0.1); Basophils % (Auto) 0.7 % (0.0-1.8); Eosinophils % (Auto) 0.5 % (0.0-4.3); Hematocrit 35.3 % (30.3-42.9); Hemoglobin 11.3 gm/dl (10.1-14.3); Lymphocytes # (Auto) 2.3 K/mm3 (1.2-5.4); Lymphocytes % (Auto) 29.6 % (13.4-35.0); Mean Corpuscular HGB Conc 32 % (30-34); Mean Corpuscular Volume 80 fl (79-97); Monocytes # (Auto) 0.5 K/mm3 (0.0-0.8); Monocytes % (Auto) 6.3 % (0.0-7.3); Platelet Count 388 K/mm3 (140-440); Red Blood Count 4.41 M/mm3 (3.65-5.03); Red Cell Distribution Width 14.2 % (13.2-15.2)
[2017-09-29 00:50] LABS: Mean Corpuscular Hemoglobin 26 pg (28-32)
[2017-09-29 00:55] LABS: BUN/Creatinine Ratio 20; Blood Urea Nitrogen 12 mg/dL (7-17); Calcium 8.6 mg/dL (8.4-10.2); Hemolysis Index 220
[2017-09-29 00:59] LABS: INR 0.89 (0.87-1.13)
[2017-09-29 01:11] LABS: Partial Thromboplastin Time 27.8 Sec. (24.2-36.6)
== END 2017-09-29 01:00 | disposition left against medical advice (07) ==
LOC: ED 21:21
DX: K92.0 Hematemesis (principal); Z53.21 Procedure and treatment not carried out due to patient leaving prior to being seen by health care provider
CPT/HCPCS: 36415; 71046; 80048; 84484; 84703; 85025; 85610; 85730; 93005; 93010

== ENCOUNTER 2017-11-30 21:35 | Emergency (ER) | payer MEDICAID ==
--- NOTE | 2017-11-30 22:18 | Emergency Department Report ---
ED General Adult HPI - General Chief complaint: Headache Stated complaint: headache Time Seen by Provider: 11/30/17 21:45 Source: patient, EMS Mode of arrival: Stretcher Limitations: No Limitations - History of Present Illness Initial comments: pt. is here complaining of headache on the right side of the head of moderate to severe intensity non radiating with no aggrav. or relieving factor.she is also complainng of left lower quadrant pain of moderate intensity non radiating with no aggrav. or relieving factor. she also as nausea. she said she feels dizzy and she passed out for a few seconds when the headache got very intense. Complaint: headache -: Gradual Location: head Radiation: non-radiation Severity scale (0 -10): 10 Quality: aching Consistency: constant Improves with: none Worsens with: none Associated Symptoms: syncope Treatments Prior to Arrival: none - Related Data Previous Rx's Medication Instructions Recorded Last Taken Type ALBUTEROL Inhaler [ProAir HFA 2 puff IH Q4H PRN #1 inhalation 06/11/17 Unknown Rx Inhaler] levETIRAcetam [Keppra TAB] 1,500 mg PO BID #180 tablet 06/11/17 Unknown Rx predniSONE [Deltasone] 60 mg PO QDAY #14 tablet 06/11/17 Unknown Rx traMADol [Ultram 50 MG tab] 50 mg PO Q6HR PRN #14 tablet 06/11/17 Unknown Rx Allergies Allergy/AdvReac Type Severity Reaction Status Date / Time Penicillins Allergy Rash Verified 06/09/17 18:34 ED Review of Systems ROS: Stated complaint: CP Other details as noted in HPI Comment: All other systems reviewed and negative ED Past Medical Hx - Past Medical History Previous Medical History?: Yes Hx Hypertension: Yes Hx Congestive Heart Failure: No Hx Diabetes: Yes Hx Seizures: Yes Hx Psychiatric Treatment: Yes (Schizophrenia) Hx Asthma: Yes Hx COPD: No Hx HIV: No Additional medical history: Multiple sclerosis - Surgical History Additional Surgical History: X3 - Social History Smoking Status: Never Smoker Substance Use Type: None - Medications Home Medications: Home Medications Medication Instructions Recorded Confirmed Last Taken Type ALBUTEROL Inhaler [ProAir HFA 2 puff IH Q4H PRN #1 inhalation 06/11/17 Unknown Rx Inhaler] levETIRAcetam [Keppra TAB] 1,500 mg PO BID #180 tablet 06/11/17 Unknown Rx predniSONE [Deltasone] 60 mg PO QDAY #14 tablet 06/11/17 Unknown Rx traMADol [Ultram 50 MG tab] 50 mg PO Q6HR PRN #14 tablet 06/11/17 Unknown Rx ED Physical Exam - General Limitations: No Limitations General appearance: alert, in no apparent distress - Head Head exam: Present: atraumatic, normocephalic - Eye Eye exam: Present: normal appearance. Absent: PERRL - ENT ENT exam: Present: mucous membranes moist - Neck Neck exam: Present: normal inspection, full ROM. Absent: tenderness - Respiratory Respiratory exam: Present: normal lung sounds bilaterally. Absent: respiratory distress - Cardiovascular Cardiovascular Exam: Present: regular rate, normal rhythm. Absent: systolic murmur, diastolic murmur, rubs, gallop - GI/Abdominal GI/Abdominal exam: Present: soft, normal bowel sounds. Absent: distended, tenderness - Rectal Rectal exam: Present: deferred - Extremities Exam Extremities exam: Present: normal inspection, full ROM - Back Exam Back exam: Present: normal inspection, full ROM - Psychiatric Psychiatric exam: Present: normal mood. Absent: normal affect (flat affect) - Skin Skin exam: Present: warm, dry, intact, normal color. Absent: rash ED Course Vital Signs 11/30/17 21:42 Temperature 98.6 F Pulse Rate 75 Respiratory 15 Rate Blood Pressure 156/100 [Left] O2 Sat by Pulse 100 Oximetry ED Medical Decision Making - Lab Data Result diagrams: 11/30/17 22:47 11/30/17 22:47 - EKG Data -: EKG Interpreted by [facility] EKG shows normal: sinus rhythm (normal), axis (normal), intervals (normal), QRS complexes (normal), ST-T waves (normal) Rate: normal (rate is 77) - Radiology Data Radiology results: report reviewed Critical care attestation.: If time is entered above; I have spent that time in minutes in the direct care of this critically ill patient, excluding procedure time. ED Disposition Clinical Impression: Vasovagal syncope, Headache Disposition: DC-01 TO HOME OR SELFCARE Is pt being admited?: No Does the pt Need Aspirin: No Condition: Stable Instructions: Syncope (ED), Acute Headache (ED) Additional Instructions: take tylenol or motrin for headache Referrals: AGUSTÍN NOWAK MD [Primary Care Provider] - 3-5 Days Time of Disposition: 23:59 Print Language: OCCITAN
[2017-11-30] MEDS ORDERED: BENADRYL IV ONE (22:59)
[2017-11-30] MEDS ORDERED: REGLAN IV ONE (22:59)
[2017-11-30 23:04] LABS: Basophils % (Auto) 0.3 % (0.0-1.8); Eosinophils % (Auto) 0.1 % (0.0-4.3); Hematocrit 35.6 % (30.3-42.9); Hemoglobin 11.7 gm/dl (10.1-14.3); Lymphocytes # (Auto) 1.9 K/mm3 (1.2-5.4); Lymphocytes % (Auto) 27.3 % (13.4-35.0); Mean Corpuscular HGB Conc 33 % (30-34); Mean Corpuscular Hemoglobin 27 pg (28-32); Mean Corpuscular Volume 81 fl (79-97); Monocytes # (Auto) 0.5 K/mm3 (0.0-0.8); Monocytes % (Auto) 7.2 % (0.0-7.3); Platelet Count 333 K/mm3 (140-440); Red Blood Count 4.39 M/mm3 (3.65-5.03); Red Cell Distribution Width 15.4 % (13.2-15.2)
[2017-11-30 23:11] LABS: INR 0.85 (0.87-1.13)
[2017-11-30 23:12] LABS: Partial Thromboplastin Time 27.8 Sec. (24.2-36.6)
[2017-11-30 23:17] LABS: Alanine Aminotransferase 8 units/L (7-56); Albumin 3.6 g/dL (3.9-5); BUN/Creatinine Ratio 22; Blood Urea Nitrogen 13 mg/dL (7-17); Calcium 8.6 mg/dL (8.4-10.2); Hemolysis Index 0
--- NOTE | 2017-11-30 23:38 | Cat Scan Report ---
FINAL REPORT PROCEDURE: CT HEAD/BRAIN WO CON TECHNIQUE: Computerized tomography of the head was performed without contrast material. HISTORY: headache COMPARISON: 06/09/2017 FINDINGS: Skull and scalp: Normal. Paranasal sinuses: Normal. Ventricles and subarachnoid spaces: Normal. Cerebrum: No evidence of hemorrhage, acute infarction or mass. Minimal periventricular deep white matter changes are noted.. Cerebellum and brainstem: No evidence of hemorrhage, acute infarction or mass. Vasculature: Normal. Comments: None. IMPRESSION: There is no evidence of an acute intracranial process. Minimal periventricular deep white matter changes are noted.
[2017-12-01 00:40] VITALS: BP 140/95
== END 2017-12-01 04:30 | disposition home or self-care (01) ==
LOC: ED 21:35
DX: R55 Syncope and collapse (principal); R51 Headache; R10.32 Left lower quadrant pain; I10 Essential (primary) hypertension; E11.9 Type 2 diabetes mellitus without complications; F20.9 Schizophrenia, unspecified; J45.909 Unspecified asthma, uncomplicated; G35 Multiple sclerosis; Z88.0 Allergy status to penicillin
CPT/HCPCS: 36415; 70450; 80053; 84484; 85025; 85610; 85730; 93005; 93010; 96374; 96375; 99284; J1200; J2765; J2930

== ENCOUNTER 2018-02-27 23:25 | Emergency (ER) | payer MEDICAID | END 2018-02-27 23:35 | disposition left against medical advice (07) | LOC: ED 23:25 | DX: M79.605 Pain in left leg (principal); Z88.0 Allergy status to penicillin; Z53.21 Procedure and treatment not carried out due to patient leaving prior to being seen by health care provider ==

== ENCOUNTER 2018-03-18 22:17 | Emergency (ER) | payer MEDICAID ==
[2018-03-19 00:46] LABS: Basophils # (Auto) 0.1 K/mm3 (0.0-0.1); Basophils % (Auto) 0.9 % (0.0-1.8); Eosinophils % (Auto) 0.5 % (0.0-4.3); Hematocrit 31.6 % (30.3-42.9); Hemoglobin 10.9 gm/dl (10.1-14.3); Lymphocytes # (Auto) 1.8 K/mm3 (1.2-5.4); Lymphocytes % (Auto) 28.6 % (13.4-35.0); Mean Corpuscular HGB Conc 35 % (30-34); Mean Corpuscular Hemoglobin 28 pg (28-32); Mean Corpuscular Volume 81 fl (79-97); Monocytes # (Auto) 0.4 K/mm3 (0.0-0.8); Monocytes % (Auto) 6.9 % (0.0-7.3); Platelet Count 338 K/mm3 (140-440); Red Cell Distribution Width 14.8 % (13.2-15.2)
[2018-03-19 01:07] LABS: Alanine Aminotransferase 35 units/L (7-56); Albumin 3.5 g/dL (3.9-5); BUN/Creatinine Ratio 32; Blood Urea Nitrogen 16 mg/dL (7-17); Calcium 8.8 mg/dL (8.4-10.2); Hemolysis Index 11
[2018-03-19] MEDS ORDERED: TYLENOL ONE (05:00)
[2018-03-19] MEDS ORDERED: TYLENOL PO ONE (05:02)
[2018-03-19 11:54] VITALS: BP 123/102
[2018-03-19] MEDS ORDERED: KEPPRA PO ONE (12:08)
--- NOTE | 2018-03-19 12:09 | Emergency Department Report ---
ED Seizure HPI - General Chief Complaint: Seizure Stated Complaint: SEIZURE Time Seen by Provider: 03/19/18 11:43 Source: patient, EMS (ems notes not available at time of chart dictation), RN notes reviewed, old records reviewed Mode of arrival: Stretcher Limitations: No Limitations - History of Present Illness Initial Comments: This is a 42-year-old female whom I have evaluated in the past, has a past medical history of multiple sclerosis, possible seizure disorder. Also has a history of left-sided weakness, diabetes, hypertension, prior documented history of left-sided weakness, and left-sided cranial nerve palsy in the past. Presents to the ER with a complaint of seizures. Reports that she was [place] yesterday, and hit her head and had 4 seizures. Denies precipitating events or complaints prior to falling and hitting her head and having her seizures. She endorses compliance with her antiepileptic drug therapy. She has no complaints currently at this time. She requested to eat autumn crackers. Complaint: seizure, possible seizure -: Sudden -: second(s) Seizure History: known seizure disorder Place: other Possible Precipitating Event: none Associated Symptoms: denies: chest pain, confusion, cough, diaphoresis, fever/ chills, loss of appetite, malaise, rash, shortness of breath, syncope, weakness , tongue injury, shoulder dislocation - Related Data Previous Rx's Medication Instructions Recorded Last Taken Type ALBUTEROL Inhaler [ProAir HFA 2 puff IH Q4H PRN #1 inhalation 06/11/17 Unknown Rx Inhaler] levETIRAcetam [Keppra TAB] 1,500 mg PO BID #180 tablet 06/11/17 Unknown Rx predniSONE [Deltasone] 60 mg PO QDAY #14 tablet 06/11/17 Unknown Rx traMADol [Ultram 50 MG tab] 50 mg PO Q6HR PRN #14 tablet 06/11/17 Unknown Rx Allergies Allergy/AdvReac Type Severity Reaction Status Date / Time Penicillins Allergy Rash Verified 06/09/17 18:34 ED Review of Systems ROS: Stated complaint: SEIZURE Other details as noted in HPI Comment: All other systems reviewed and negative ED Past Medical Hx - Past Medical History Hx Hypertension: Yes Hx Congestive Heart Failure: No Hx Diabetes: Yes Hx Seizures: Yes Hx Psychiatric Treatment: Yes (Schizophrenia) Hx Asthma: Yes Hx COPD: No Hx HIV: No Additional medical history: Multiple sclerosis - Surgical History Additional Surgical History: X3 - Social History Smoking Status: Never Smoker Substance Use Type: None - Medications Home Medications: Home Medications Medication Instructions Recorded Confirmed Last Taken Type ALBUTEROL Inhaler [ProAir HFA 2 puff IH Q4H PRN #1 inhalation 06/11/17 03/19/18 Unknown Rx Inhaler] levETIRAcetam [Keppra TAB] 1,500 mg PO BID #180 tablet 06/11/17 03/19/18 Unknown Rx predniSONE [Deltasone] 60 mg PO QDAY #14 tablet 06/11/17 03/19/18 Unknown Rx traMADol [Ultram 50 MG tab] 50 mg PO Q6HR PRN #14 tablet 06/11/17 03/19/18 Unknown Rx ED Physical Exam - General Limitations: No Limitations General appearance: alert, in no apparent distress - Head Head exam: Present: atraumatic, normocephalic - Eye Eye exam: Present: normal appearance (no evidence of cranial nerve palsy or fourth nerve palsy), PERRL, EOMI, other (visual acuity intact to finger counting , color perception, reading at a close distance). Absent: nystagmus - ENT ENT exam: Present: normal exam, normal orophraynx, mucous membranes moist, normal external ear exam - Neck Neck exam: Present: normal inspection, full ROM - Respiratory Respiratory exam: Present: normal lung sounds bilaterally. Absent: respiratory distress - Cardiovascular Cardiovascular Exam: Present: regular rate, normal rhythm, normal heart sounds. Absent: bradycardia, tachycardia, irregular rhythm, systolic murmur, diastolic murmur, rubs, gallop - GI/Abdominal GI/Abdominal exam: Present: soft, normal bowel sounds. Absent: distended, tenderness, guarding, rebound, rigid, pulsatile mass - Extremities Exam Extremities exam: Present: normal inspection, full ROM, normal capillary refill , other (2+ pulses noted in the bilateral upper, lower extremities. Compartments soft. No long bony tenderness. The pelvis is stable.). Absent: pedal edema, calf tenderness - Back Exam Back exam: Present: normal inspection, full ROM. Absent: tenderness, CVA tenderness (R), paraspinal tenderness, vertebral tenderness - Neurological Exam Neurological exam: Present: alert, oriented X3, CN II-XII intact, normal gait, motor sensory deficit (4 out of 5 strength left upper extremity. This is chronic. 5 out of 5 strength right upper extremity, bilateral lower extremities. Sensation intact to light touch in 4 extremities) - Psychiatric Psychiatric exam: Present: normal affect, normal mood - Skin Skin exam: Present: warm, dry, intact, normal color. Absent: rash ED Course Vital Signs 03/18/18 03/19/18 03/19/18 22:28 00:16 11:53 Temperature 99.2 F 99.2 F Pulse Rate 81 82 52 L Respiratory 18 16 16 Rate Blood Pressure 145/88 145/88 Blood Pressure 123/102 [Left] O2 Sat by Pulse 100 100 99 Oximetry - Reevaluation(s) Reevaluation #1: 03/19/18 14:[address] scan of the brain is negative. Laboratory studies unremarkable. Vital signs have remained stable. No convulsive activity noted in the ER. Patient will be discharged. ED Medical Decision Making - Lab Data Result diagrams: 03/19/18 13:12 03/19/18 13:12 Vital Signs 03/18/18 03/19/18 03/19/18 22:28 00:16 11:53 Temperature 99.2 F 99.2 F Pulse Rate 81 82 52 L Respiratory 18 16 16 Rate Blood Pressure 145/88 145/88 Blood Pressure 123/102 [Left] O2 Sat by Pulse 100 100 99 Oximetry Lab Results 03/19/18 03/19/18 03/19/18 Range/Units 00:31 00:31 00:31 WBC 6.1 (4.5-11.0) K/mm3 RBC 3.90 (3.65-5.03) M/mm3 Hgb 10.9 (10.1-14.3) gm/dl Hct 31.6 (30.3-42.9) % MCV 81 (79-97) fl MCH 28 (28-32) pg MCHC 35 H (30-34) % RDW 14.8 (13.2-15.2) % Plt Count 338 (140-440) K/mm3 Lymph % (Auto) 28.6 (13.4-35.0) % Sampson % (Auto) 6.9 (0.0-7.3) % Eos % (Auto) 0.5 (0.0-4.3) % Baso % (Auto) 0.9 (0.0-1.8) % Lymph # 1.8 (1.2-5.4) K/mm3 Sampson # 0.4 (0.0-0.8) K/mm3 Eos # 0.0 (0.0-0.4) K/mm3 Baso # 0.1 (0.0-0.1) K/mm3 Seg Neutrophils % 63.1 (40.0-70.0) % Seg Neutrophils # 3.9 (1.8-7.7) K/mm3 Sodium 138 (137-145) mmol/L Potassium 4.2 (3.6-5.0) mmol/L Chloride 104.1 (98-107) mmol/L Carbon Dioxide 22 (22-30) mmol/L Anion Gap 16 mmol/L BUN 16 (7-17) mg/dL Creatinine 0.5 L (0.7-1.2) mg/dL Estimated GFR > 60 ml/min BUN/Creatinine Ratio 32 % Glucose 90 (65-100) mg/dL Calcium 8.8 (8.4-10.2) mg/dL Magnesium 2.20 (1.7-2.3) mg/dL Total Bilirubin < 0.20 (0.1-1.2) mg/dL AST 18 (5-40) units/L ALT 35 (7-56) units/L Alkaline Phosphatase 78 (35-129) units/L Total Protein 6.9 (6.3-8.2) g/dL Albumin 3.5 L (3.9-5) g/dL Albumin/Globulin Ratio 1.0 % HCG, Qual Negative (Negative) Urine Color (Yellow) Urine Turbidity (Clear) Urine pH (5.0-7.0) Ur Specific [place] (1.003-1.030) Urine Protein (Negative) mg/dL Urine Glucose (UA) (Negative) mg/dL Urine Ketones (Negative) mg/dL Urine Blood (Negative) Urine Nitrite (Negative) Urine Bilirubin (Negative) Urine Urobilinogen (<2.0) mg/dL Ur Leukocyte Esterase (Negative) Urine WBC (Auto) (0.0-6.0) /HPF Urine RBC (Auto) (0.0-6.0) /HPF U Epithel Cells (Auto) (0-13.0) /HPF Urine Bacteria (Auto) (Negative) /HPF Urine Mucus /HPF Urine Opiates Screen Urine Methadone Screen Ur Phencyclidine Scrn Ur Amphetamines Screen U Benzodiazepines Scrn Urine Cocaine Screen U Marijuana (THC) Screen 03/19/18 03/19/18 Range/Units 12:46 12:46 WBC (4.5-11.0) K/mm3 RBC (3.65-5.03) M/mm3 Hgb (10.1-14.3) gm/dl Hct (30.3-42.9) % MCV (79-97) fl MCH (28-32) pg MCHC (30-34) % RDW (13.2-15.2) % Plt Count (140-440) K/mm3 Lymph % (Auto) (13.4-35.0) % Sampson % (Auto) (0.0-7.3) % Eos % (Auto) (0.0-4.3) % Baso % (Auto) (0.0-1.8) % Lymph # (1.2-5.4) K/mm3 Sampson # (0.0-0.8) K/mm3 Eos # (0.0-0.4) K/mm3 Baso # (0.0-0.1) K/mm3 Seg Neutrophils % (40.0-70.0) % Seg Neutrophils # (1.8-7.7) K/mm3 Sodium (137-145) mmol/L Potassium (3.6-5.0) mmol/L Chloride (98-107) mmol/L Carbon Dioxide (22-30) mmol/L Anion Gap mmol/L BUN (7-17) mg/dL Creatinine (0.7-1.2) mg/dL Estimated GFR ml/min BUN/Creatinine Ratio % Glucose (65-100) mg/dL Calcium (8.4-10.2) mg/dL Magnesium (1.7-2.3) mg/dL Total Bilirubin (0.1-1.2) mg/dL AST (5-40) units/L ALT (7-56) units/L Alkaline Phosphatase (35-129) units/L Total Protein (6.3-8.2) g/dL Albumin (3.9-5) g/dL Albumin/Globulin Ratio % HCG, Qual (Negative) Urine Color Yellow (Yellow) Urine Turbidity Clear (Clear) Urine pH 5.0 (5.0-7.0) Ur Specific [place] 1.012 (1.003-1.030) Urine Protein <15 mg/dl (Negative) mg/dL Urine Glucose (UA) Neg (Negative) mg/dL Urine Ketones Neg (Negative) mg/dL Urine Blood Neg (Negative) Urine Nitrite Neg (Negative) Urine Bilirubin Neg (Negative) Urine Urobilinogen < 2.0 (<2.0) mg/dL Ur Leukocyte Esterase Mod (Negative) Urine WBC (Auto) 2.0 (0.0-6.0) /HPF Urine RBC (Auto) 3.0 (0.0-6.0) /HPF U Epithel Cells (Auto) 3.0 (0-13.0) /HPF Urine Bacteria (Auto) 1+ (Negative) /HPF Urine Mucus Few /HPF Urine Opiates Screen Presumptive negative Urine Methadone Screen Presumptive negative Ur Phencyclidine Scrn Presumptive negative Ur Amphetamines Screen Presumptive negative U Benzodiazepines Scrn Presumptive negative Urine Cocaine Screen Presumptive negative U Marijuana (THC) Screen Presumptive negative - EKG Data -: EKG Interpreted by [facility] - EKG Data When compared to previous EKG there are: no significant change 03/19/18 13:19 Normal sinus, 76 bpm, normal axis, QTC prolonged, abnormal EKG, not a myocardial infarction, when compared to prior from July 2017, high left ventricular voltage appears to be resolved, and there is low voltage in the anteroseptal leads, this appears to be new. - Radiology Data Radiology results: pending, report reviewed, image reviewed Noncontrast CT scan of the brain is read as negative for acute disease - Medical Decision Making Differential diagnosis, including but not limited to: Seizure, posttraumatic seizure, urinary tract infection Assessment and plan: 42-year-old female with history of multiple sclerosis and reported seizure disorder, or documented history of medication noncompliance, with reported breakthrough seizure yesterday. She is afebrile with reassuring vital signs, clinically sober, her physical exam is normal and at baseline when compared to prior, she is noted to be speaking a cell phone in no distress. Her objective laboratory studies are unremarkable, a noncontrast CT scan of the brain was negative for acute disease, patient was observed in the ER 4 hours without clinical decompensation, and patient has her prescriptions with her. She is instructed to not drive or operate motor vehicles for the next 6 months, and she is medically suitable to follow up with outpatient neurologist for further outpatient evaluation and management. She will be discharged at this time, return precautions are reviewed. Critical care attestation.: If time is entered above; I have spent that time in minutes in the direct care of this critically ill patient, excluding procedure time. ED Disposition Clinical Impression: Seizure Disposition: DC-01 TO HOME OR SELFCARE Is pt being admited?: No Does the pt Need Aspirin: No Condition: Good Instructions: Recurrent Seizures Adult (ED) Additional Instructions: Do not drive or operate motor vehicles for the next 6 months. Continue outpatient seizure medications. Follow up with neurology specialist within the next 7-10 days. Return to the ER right away with recurrent seizures, fevers, chills, lethargy, projectile vomiting, change in mental status, confusion, inability to tolerate liquid feeds. Referrals: PRIMARY MD SAMRA [Primary Care Provider] - 3-5 Days HARSH GARCIA MD [Referring] - 3-5 Days SERGEI JIN MD [Staff Physician] - 3-5 Days GERMAN VIRAMONTES MD [Staff Physician] - 3-5 Days
[2018-03-19 13:07] LABS: Bacteria,Urine 1+ /HPF (Negative); Bilirubin,Urine NEG (Negative); Blood,Urine NEG (Negative); Color,Urine Yellow (Yellow); Mucus,Urine FEW /HPF; Protein,Urine <15 mg/dL mg/dL (Negative); Urobilinogen,Urine < 2.0 mg/dL (<2.0)
[2018-03-19 13:11] LABS: Amphetamine Screen,Urine PRESUMPTIVE NEGATIVE; Benzodiazepines Screen,Urine PRESUMPTIVE NEGATIVE; Cannabinoid Screen,Urine PRESUMPTIVE NEGATIVE; Cocaine Screen,Urine PRESUMPTIVE NEGATIVE; Methadone Screen,Urine PRESUMPTIVE NEGATIVE; Opiate Screen,Urine PRESUMPTIVE NEGATIVE
[2018-03-19 13:51] LABS: BUN/Creatinine Ratio 18; Blood Urea Nitrogen 11 mg/dL (7-17); Calcium 9.2 mg/dL (8.4-10.2); Hemolysis Index 30
--- NOTE | 2018-03-19 13:53 | Cat Scan Report ---
FINAL REPORT EXAM: CT HEAD/BRAIN WO CON HISTORY: Seizure TECHNIQUE: CT of the head was performed. No intravenous contrast was administered. PRIORS: 11/30/2017 FINDINGS: There is mild ischemic change in the white matter. 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 There is no evidence of intracranial hemorrhage. There is no edema, mass effect or midline shift. There are no abnormal extra-axial fluid collections. The ventricles are appropriate for brain volume. There is no skull fracture seen. The visualized aspects of the sinuses are clear. IMPRESSION: There is no acute intracranial abnormality identified.
[2018-03-19 13:55] LABS: Hematocrit 34.9 % (30.3-42.9); Hemoglobin 11.4 gm/dl (10.1-14.3); Mean Corpuscular HGB Conc 33 % (30-34); Mean Corpuscular Hemoglobin 27 pg (28-32); Mean Corpuscular Volume 81 fl (79-97); Platelet Count 390 K/mm3 (140-440); Red Blood Count 4.31 M/mm3 (3.65-5.03); Red Cell Distribution Width 14.9 % (13.2-15.2)
== END 2018-03-19 14:17 | disposition home or self-care (01) ==
LOC: ED 22:17
DX: G40.909 Epilepsy, unspecified, not intractable, without status epilepticus (principal); E11.9 Type 2 diabetes mellitus without complications; I10 Essential (primary) hypertension; J45.909 Unspecified asthma, uncomplicated; F20.9 Schizophrenia, unspecified; G35 Multiple sclerosis; Z88.0 Allergy status to penicillin
CPT/HCPCS: 36415; 70450; 80048; 80053; 80307; 81001; 82550; 83735; 84702; 84703; 85025; 85027; 93005; 93010

== ENCOUNTER 2018-03-19 20:18 | Emergency (ER) | payer MEDICAID ==
[2018-03-20] MEDS ORDERED: TYLENOL PO ONE (00:34)
--- NOTE | 2018-03-20 00:50 | Emergency Department Report ---
HPI - General Chief Complaint: Headache Time Seen by Provider: 03/20/18 00:14 - HPI HPI: The patient is a 42-year-old female presents for evaluation of headache. The patient reports constant mild aching frontal headache for the past 8 hours, since discharge from the ED earlier today. She also has a secondary complaint of bilateral lower leg pain. The patient denies fever, head injury, headache, neck pain, neck stiffness, vision or hearing changes, smell or taste changes, paresthesias, facial drooping, slurred speech, urine or bowel incontinence or retention, or other focal neurological deficit. ED Past Medical Hx - Past Medical History Hx Hypertension: Yes Hx Congestive Heart Failure: No Hx Diabetes: Yes Hx Seizures: Yes Hx Psychiatric Treatment: Yes (Schizophrenia) Hx Asthma: Yes Hx COPD: No Hx HIV: No Additional medical history: Multiple sclerosis - Surgical History Additional Surgical History: X3 - Social History Smoking Status: Never Smoker Substance Use Type: None - Medications Home Medications: Home Medications Medication Instructions Recorded Confirmed Last Taken Type ALBUTEROL Inhaler [ProAir HFA 2 puff IH Q4H PRN #1 inhalation 06/11/17 03/19/18 Unknown Rx Inhaler] levETIRAcetam [Keppra TAB] 1,500 mg PO BID #180 tablet 06/11/17 03/19/18 Unknown Rx predniSONE [Deltasone] 60 mg PO QDAY #14 tablet 06/11/17 03/19/18 Unknown Rx traMADol [Ultram 50 MG tab] 50 mg PO Q6HR PRN #14 tablet 06/11/17 03/19/18 Unknown Rx ED Review of Systems ROS: Stated complaint: HEADACHE LEG PAIN Other details as noted in HPI Constitutional: denies: fever ENT: denies: throat or neck pain Respiratory: denies: cough, shortness of breath Cardiovascular: denies: chest pain Endocrine: denies unexplained weight loss or gain Gastrointestinal: denies: abdominal pain, nausea Genitourinary: denies: dysuria Musculoskeletal: denies: leg swelling Skin: denies: rash Neurological: reports headache Hematological/Lymphatic: denies: easy bleeding or easy bruising Psych: denies sadness or hopelessness Physical Exam - Physical Exam Vital Signs: Vital Signs 03/19/18 03/19/18 03/19/18 20:23 23:30 23:32 Temperature 99.2 F Pulse Rate 88 Respiratory 18 Rate Blood Pressure 112/74 106/76 O2 Sat by Pulse 100 100 98 Oximetry 03/19/18 23:38 Temperature Pulse Rate Respiratory 18 Rate Blood Pressure O2 Sat by Pulse 99 Oximetry Physical Exam: General: well-nourished, well-developed, no acute distress Head: Normocephalic, atraumatic Eyes: normal sclera ENT: Mucous membranes are pink and moist Neck: trachea midline, neck supple, No neck stiffness, no cervical adenopathy Respiratory: Breath sounds equal bilaterally, no wheezing, rales, or rhonchi Cardio: S1 and S2 present, no murmurs, rubs, gallops, capillary refill is brisk Abdomen: Normoactive bowel sounds, soft abdomen, no rigidity, no guarding or rebound tenderness Musc: No pitting edema, bilateral anterior almeida tenderness to palpation present , no redness, swelling, fluctuance, crepitus, the compartments are soft and pliable, no signs of compartment syndrome, sensation, motor deficit, pulses intact in the distal lower legs and feet Skin: No rash Neuro: alert oriented x4, normal cognition, speech normal, PERRL, EOM intact, no facial drooping, no uvula or tongue deviation on protrusion, no deficit with rotation of neck or shoulder shrug, no obvious gross motor deficit in the upper or lower extremities with flexion or extension at the shoulder, elbow, wrist, hip, knee, or ankle bilaterally, no obvious gross sensation deficit to crude touch or 2 pt discrimination, 2+ symmetric reflexes on DTR testing, no coordination deficit with [id number]-syhd or ejvv-ir-mhyi testing, Babinski downgoing, Psych: Normal affect ED Course Vital Signs 03/19/18 03/19/18 03/19/18 20:23 23:30 23:32 Temperature 99.2 F Pulse Rate 88 Respiratory 18 Rate Blood Pressure 112/74 106/76 O2 Sat by Pulse 100 100 98 Oximetry 03/19/18 23:38 Temperature Pulse Rate Respiratory 18 Rate Blood Pressure O2 Sat by Pulse 99 Oximetry ED Medical Decision Making - Medical Decision Making The patient was seen and examined by myself. The patient is placed on a cafeteria monitor and continuous pulse ox. On initial evaluation, the patient was found to be in no distress. The patient is given Tegretol for her pain. Medical records are reviewed and revealed that the patient received a CAT scan the head earlier today which was unremarkable. Addition the patient received blood work and lab results were all unremarkable as well. The patient was reevaluated and reported that their symptoms were markedly improved. The patient is stable for discharge with outpatient follow-up. The patient is given follow-up and return instructions. The patient expressed understanding and agreed with the plan. The patient is discharged in stable condition. Critical care attestation.: If time is entered above; I have spent that time in minutes in the direct care of this critically ill patient, excluding procedure time. ED Disposition Clinical Impression: Acute non intractable tension-type headache Lower extremity pain, anterior Qualifiers: Laterality: unspecified laterality Qualified Code(s): M79.606 - Pain in leg, unspecified Disposition: DC- TO HOME OR SELFCARE Is pt being admited?: No Does the pt Need Aspirin: No Condition: Stable Instructions: Migraine Headache (ED) Referrals: PRIMARY CAREMD [Primary Care Provider] - 3-5 Days Time of Disposition: 00:45
[2018-03-20 19:31] VITALS: BP 111/68
== END 2018-03-20 12:03 | disposition home or self-care (01) ==
LOC: ED 20:18
DX: G44.209 Tension-type headache, unspecified, not intractable (principal); M79.661 Pain in right lower leg; M79.662 Pain in left lower leg; I10 Essential (primary) hypertension; E11.9 Type 2 diabetes mellitus without complications; J45.909 Unspecified asthma, uncomplicated
CPT/HCPCS: 99283

== ENCOUNTER 2018-03-31 21:03 | Emergency (ER) | payer MEDICAID ==
[2018-03-31 21:13] VITALS: BP 142/82
[2018-04-01] MEDS ORDERED: TYLENOL PO ONE (01:00)
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
== END 2018-04-01 03:30 | disposition home or self-care (01) ==
LOC: ED 21:03
DX: G40.909 Epilepsy, unspecified, not intractable, without status epilepticus (principal); I10 Essential (primary) hypertension; E11.9 Type 2 diabetes mellitus without complications; J45.909 Unspecified asthma, uncomplicated; Z88.0 Allergy status to penicillin; Y04.8XXA Assault by other bodily force, initial encounter
CPT/HCPCS: 70450; 99284

== ENCOUNTER 2018-04-03 12:37 | Emergency (ER) | payer MEDICAID ==
[2018-04-03] MEDS ORDERED: KEPPRA 1,000 MG/NS 0.75% 100ML 1,000 MG/100 ML BAG IV ONE (13:14)
[2018-04-03] MEDS ORDERED: NACL 0.9% 500 ML 500 ML IV ONE (13:14)
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
[2018-04-03 13:36] LABS: Hemoglobin 10.9 gm/dl (10.1-14.3); Mean Corpuscular HGB Conc 34 % (30-34); Mean Corpuscular Hemoglobin 28 pg (28-32); Mean Corpuscular Volume 82 fl (79-97); Platelet Count 383 K/mm3 (140-440); Red Blood Count 3.91 M/mm3 (3.65-5.03); Red Cell Distribution Width 15.1 % (13.2-15.2)
[2018-04-03 13:42] LABS: BUN/Creatinine Ratio 27; Blood Urea Nitrogen 16 mg/dL (7-17); Calcium 8.9 mg/dL (8.4-10.2); Hemolysis Index 7
[2018-04-03 13:46] LABS: Alanine Aminotransferase 10 units/L (7-56); Albumin 3.7 g/dL (3.9-5)
[2018-04-03 13:54] LABS: Bilirubin,Direct < 0.2 mg/dL (0-0.2)
[2018-04-03] MEDS ORDERED: MORPHINE IV ONE (15:39)
[2018-04-04 09:48] VITALS: BP 122/84
== END 2018-04-04 10:59 | disposition home or self-care (01) ==
LOC: ED 12:37
DX: G40.909 Epilepsy, unspecified, not intractable, without status epilepticus (principal); G35 Multiple sclerosis; I10 Essential (primary) hypertension; F20.9 Schizophrenia, unspecified; E11.649 Type 2 diabetes mellitus with hypoglycemia without coma; J45.909 Unspecified asthma, uncomplicated
CPT/HCPCS: 36415; 80048; 80074; 82550; 84484; 84703; 85027; 96365; 96375; 99284; J1953; J2270; J7040; 96374

== ENCOUNTER 2018-04-04 22:17 | Inpatient (IN) | payer MEDICAID ==
[2018-04-05] MEDS ORDERED: NACL 0.9% 1000 ML 1,000 ML IV ONE (02:39)
[2018-04-05] MEDS ORDERED: NORCO 5/325 PO ONE (02:39)
[2018-04-05 03:21] LABS: Basophils # (Auto) 0.1 K/mm3 (0.0-0.1); Basophils % (Auto) 0.8 % (0.0-1.8); Eosinophils # (Auto) 0.1 K/mm3 (0.0-0.4); Eosinophils % (Auto) 1.2 % (0.0-4.3); Hematocrit 32.1 % (30.3-42.9); Hemoglobin 10.4 gm/dl (10.1-14.3); Lymphocytes # (Auto) 1.7 K/mm3 (1.2-5.4); Lymphocytes % (Auto) 24.9 % (13.4-35.0); Mean Corpuscular HGB Conc 32 % (30-34); Mean Corpuscular Hemoglobin 27 pg (28-32); Mean Corpuscular Volume 82 fl (79-97); Monocytes # (Auto) 0.6 K/mm3 (0.0-0.8); Monocytes % (Auto) 8.2 % (0.0-7.3); Platelet Count 406 K/mm3 (140-440); Red Blood Count 3.91 M/mm3 (3.65-5.03)
[2018-04-05 03:44] LABS: BUN/Creatinine Ratio 35; Blood Urea Nitrogen 21 mg/dL (7-17); Calcium 8.8 mg/dL (8.4-10.2); Hemolysis Index 7
[2018-04-05] MEDS ORDERED: K-DUR PO ONE (04:42)
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
[2018-04-05] MEDS ORDERED: ZOFRAN IV PRN ×2 (07:30→09:48)
[2018-04-05 08:21] LABS: Bacteria,Urine 1+ /HPF (Negative); Bilirubin,Urine NEG (Negative); Blood,Urine NEG (Negative); Color,Urine Yellow (Yellow); Mucus,Urine 1+ /HPF; Protein,Urine <15 mg/dL mg/dL (Negative)
[2018-04-05 08:23] LABS: HCG Qualitative,Urine Negative (Negative)
[2018-04-05] MEDS ORDERED: SODIUM CHLORIDE FLUSH SYRINGE 10 ML IV PRN (09:48)
[2018-04-05] MEDS ORDERED: TYLENOL PO PRN (09:48)
[2018-04-05] MEDS ORDERED: ULTRAM PO PRN (09:50)
[2018-04-05] MEDS ORDERED: D50W (25GM) Syringe IV PRN (09:53)
--- NOTE | 2018-04-05 09:53 | History and Physical Report ---
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 She reports that she has seizures following the fall which lasted for a few minutes. She was brought to the ER by EMS. She reports that prior to this is been having some paresthesias in her R pressure became also had a facial area. She reports that she has been out of her MS medication for several weeks and was unable to follow up with her neurologist due to feeling a period on my examination the patient is awake alert oriented. Although she reports in the past spells of optic neuritis in the right eye and had been on interferon therapy this was taken off because of a rash. She denies any blurry vision at this time. ROS Constitutional: No fever, fatigue or weight loss. Skin: No rash. Eyes: No recent vision problems or eye pain. ENT: No congestion, ear pain, or sore throat. Endocrine: No thyroid problems. Cardiovascular: No chest pain. Respiratory: No cough, shortness of breath, congestion, or wheezing. Gastrointestinal: No abdominal pain, nausea, vomiting, or diarrhea. Genitourinary: No dysuria. Musculoskeletal: No joint swelling. Neurologic: Seizures with right upper extremity weakness and facial weakness. Hematologic: No unusual bruising or bleeding. Psychiatric: No psychiatric problems, hallucinations or depression. All other systems reviewed and otherwise negative. Past History Past Medical History: seizures, other (ms) Past Surgical History: No surgical history Social history: , full code Family history: hypertension, stroke, other (seizure) Medications and Allergies Allergies Allergy/AdvReac Type Severity Reaction Status Date / Time Penicillins Allergy Rash Verified 06/09/17 18:34 Home Medications Medication Instructions Recorded Confirmed Last Taken Type ALBUTEROL Inhaler [ProAir HFA 2 puff IH Q4H PRN #1 inhalation 06/11/17 04/05/18 Unknown Rx Inhaler] levETIRAcetam [Keppra TAB] 1,500 mg PO BID #180 tablet 04/03/18 04/05/18 Unknown Rx Active Meds: Active Medications Acetaminophen (Tylenol) 650 mg PO Q4H PRN PRN Reason: Pain MILD(1-3)/Fever >100.5/ABBASI Albuterol (Proventil) 2.5 mg IH Q4HRT PRN PRN Reason: Shortness Of Breath Docusate Sodium (Colace) 100 mg PO BID [facility] Famotidine (Pepcid) 20 mg PO BID [facility] Levetiracetam (Keppra) 1,500 mg PO BID [facility] Ondansetron HCl (Zofran) 4 mg IV Q4H PRN PRN Reason: N/V IF NPO AND NO IV ACCESS Ondansetron HCl (Zofran) 4 mg IV Q8H PRN PRN Reason: Nausea And Vomiting Oxycodone/Acetaminophen (Percocet 5/325) 1 tab PO Q6H PRN PRN Reason: Pain, Moderate (4-6) Prednisone (Deltasone) 60 mg PO QDAY [facility] Sodium Chloride (Sodium Chloride Flush Syringe 10 Ml) 10 ml IV BID [facility] Sodium Chloride (Sodium Chloride Flush Syringe 10 Ml) 10 ml IV PRN PRN PRN Reason: LINE FLUSH Tramadol HCl (Ultram) 50 mg PO Q6HR PRN PRN Reason: Pain Exam - Physical Exam Narrative exam: VITAL SIGNS: Reviewed. GENERAL: The patient appeared well nourished and normally developed. Vital signs as documented. HEAD: No signs of head trauma. EYES: Pupils are equal. Extraocular motions intact. EARS: Hearing grossly intact. MOUTH: Oropharynx is normal. NECK: No adenopathy, no JVD. CHEST: Chest with clear breath sounds bilaterally. No wheezes, rales, or rhonchi. CARDIAC: Regular rate and rhythm. S1 and S2, without murmurs, gallops, or rubs. VASCULAR: No Edema. Peripheral pulses normal and equal in all extremities. ABDOMEN: Soft, without detectable tenderness. No sign of distention. No rebound or guarding, and no masses palpated. Bowel Sounds normal. MUSCULOSKELETAL: Good range of motion of all major joints. Extremities without clubbing, cyanosis or edema. NEUROLOGIC EXAM: Alert and oriented x 3. No focal sensory or strength deficits. Speech normal. Follows commands. PSYCHIATRIC: Mood normal. SKIN: No rash or lesions. - Constitutional Vitals: Temp Pulse Resp BP Pulse Ox 98.8 F 78 16 110/65 100 04/04/18 23:43 04/04/18 23:43 04/04/18 23:43 04/05/18 05:00 04/05/18 05:00 Results - Labs CBC & Chem 7: 04/05/18 03:06 04/05/18 03:06 Labs: Laboratory Last Values WBC 7.0 K/mm3 (4.5-11.0) 04/05/18 03:06 RBC 3.91 M/mm3 (3.65-5.03) 04/05/18 03:06 Hgb 10.4 gm/dl (10.1-14.3) 04/05/18 03:06 Hct 32.1 % (30.3-42.9) 04/05/18 03:06 MCV 82 fl (79-97) 04/05/18 03:06 MCH 27 pg (28-32) L 04/05/18 03:06 MCHC 32 % (30-34) 04/05/18 03:06 RDW 15.0 % (13.2-15.2) 04/05/18 03:06 Plt Count 406 K/mm3 (140-440) 04/05/18 03:06 Lymph % (Auto) 24.9 % (13.4-35.0) 04/05/18 03:06 Miller % (Auto) 8.2 % (0.0-7.3) H 04/05/18 03:06 Eos % (Auto) 1.2 % (0.0-4.3) 04/05/18 03:06 Baso % (Auto) 0.8 % (0.0-1.8) 04/05/18 03:06 Lymph # 1.7 K/mm3 (1.2-5.4) 04/05/18 03:06 Miller # 0.6 K/mm3 (0.0-0.8) 04/05/18 03:06 Eos # 0.1 K/mm3 (0.0-0.4) 04/05/18 03:06 Baso # 0.1 K/mm3 (0.0-0.1) 04/05/18 03:06 Seg Neutrophils % 64.9 % (40.0-70.0) 04/05/18 03:06 Seg Neutrophils # 4.5 K/mm3 (1.8-7.7) 04/05/18 03:06 Sodium 142 mmol/L (137-145) 04/05/18 03:06 Potassium 3.2 mmol/L (3.6-5.0) L 04/05/18 03:06 Chloride 105.9 mmol/L (98-107) 04/05/18 03:06 Carbon Dioxide 23 mmol/L (22-30) 04/05/18 03:06 Anion Gap 16 mmol/L 04/05/18 03:06 BUN 21 mg/dL (7-17) H 04/05/18 03:06 Creatinine 0.6 mg/dL (0.7-1.2) L 04/05/18 03:06 Estimated GFR > 60 ml/min 04/05/18 03:06 BUN/Creatinine Ratio 35 % 04/05/18 03:06 Glucose 117 mg/dL (65-100) H 04/05/18 03:06 Calcium 8.8 mg/dL (8.4-10.2) 04/05/18 03:06 Troponin T < 0.010 ng/mL (0.00-0.029) 04/05/18 03:06 HCG, Qual Negative (Negative) 04/05/18 03:53 Urine Color Yellow (Yellow) 04/05/18 Unknown Urine Turbidity Cloudy (Clear) 04/05/18 Unknown Urine pH 5.0 (5.0-7.0) 04/05/18 Unknown Ur Specific [place] 1.023 (1.003-1.030) 04/05/18 Unknown Urine Protein <15 mg/dl mg/dL (Negative) 04/05/18 Unknown Urine Glucose (UA) Neg mg/dL (Negative) 04/05/18 Unknown Urine Ketones Neg mg/dL (Negative) 04/05/18 Unknown Urine Blood Neg (Negative) 04/05/18 Unknown Urine Nitrite Neg (Negative) 04/05/18 Unknown Urine Bilirubin Neg (Negative) 04/05/18 Unknown Urine Urobilinogen 2.0 mg/dL (<2.0) 04/05/18 Unknown Ur Leukocyte Esterase Lg (Negative) 04/05/18 Unknown Urine WBC (Auto) 22.0 /HPF (0.0-6.0) H 08/03/18 Unknown Urine RBC (Auto) 19.0 /HPF (0.0-6.0) 04/05/18 Unknown U Epithel Cells (Auto) 26.0 /HPF (0-13.0) H 04/05/18 Unknown Urine Bacteria (Auto) 1+ /HPF (Negative) 04/05/18 Unknown Urine Mucus 1+ /HPF 04/05/18 Unknown Urine Yeast (Budding) Few /HPF 04/05/18 Unknown Urine HCG, Qual Negative (Negative) 04/05/18 Unknown - Imaging and Cardiology CT Scan - head: image reviewed (no acute pathology) Assessment and Plan Assessment and plan: Patient is 42-year-old female with history of multiple sclerosis, 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 She reports that she has seizures following the fall which lasted for a few minutes. She was brought to the ER by EMS. She reports that prior to this is been having some paresthesias in her R pressure became also had a facial area. She reports that she has been out of her MS medication for several weeks and was unable to follow up with her neurologist due to feeling a period on my examination the patient is awake alert oriented. Although she reports in the past spells of optic neuritis in the right eye and had been on interferon therapy this was taken off because of a rash. She denies any blurry vision at this time. MS flair Fall with subsequent syncope Hypokalemia Noncompliance with medication ?concusion seizure DM plan Admit to [facility] Resume home meds Patients ran out for the last week including prednisone Seizure precautions DM management Neuro consult MRI brain DVT and GI prophylaxis Can discharge in a.m. if no further seizure activity. Plan after discussing the patient in detail patient verbalized understanding Patient will need medication review and refill on discharge Advance Directives: Yes Plan of care discussed with patient/family: Yes
[2018-04-05] MEDS ORDERED: DELTASONE PO SCH (10:00)
[2018-04-05] MEDS: KEPPRA PO SCH ×2 (10:41→21:21)
[2018-04-05] MEDS: COLACE PO SCH ×2 (10:42→21:21)
[2018-04-05] MEDS: PEPCID PO SCH ×2 (10:42→21:21)
[2018-04-05] MEDS: PERCOCET 5/325 PO PRN ×2 (10:43→19:44)
[2018-04-05] MEDS: SODIUM CHLORIDE FLUSH SYRINGE 10 ML IV SCH ×2 (10:44→21:22)
--- NOTE | 2018-04-05 12:17 | Magnetic Resonance Report ---
MRI BRAIN WITHOUT CONTRAST: 04/05/18 07:16:00 CLINICAL: Seizure and history of MS COMPARISON: 05/01/17 TECHNIQUE: Axial diffusion, T1, T2, gradient echo T2*, coronal and axial FLAIR and sagittal T1 sequences on a 1.5 [place] magnet. FINDINGS: The quality of the examination is degraded by motion, particularly on the T2 sequence which was repeated several times. No restricted diffusion. Stable global cortical atrophy and extensive bilateral deep white matter and fluid hyperintense lesions on T2 and FLAIR. No mass or mass effect. No hemorrhage, edema or extra-axial collection. Normal pituitary and optic chiasm. A stable right cerebellar white matter lesion. The brainstem is normal. Intact vascular flow voids. Normal sinuses. The orbits, and soft tissues are normal. Normal calvarium and skull base. IMPRESSION: 1. No evidence of acute/subacute infarct or hemorrhage. 2. No mass. 3. Stable extensive white matter disease consistent with MS. 4. Stable global cortical atrophy.
[2018-04-05] MEDS: HumaLOG SUB-Q SCH ×3 (13:17→23:33)
--- NOTE | 2018-04-05 14:01 | Consultation ---
History of Present Illness Consult date: 04/05/18 Requesting physician: ZEYAD PAINTER Reason for Consult: seizure, MS History of present illness: 42 year old female with history of multiple sclerosis diagnosed about 9 years ago, and seizure disorder diagnosed about 7 years ago. The patient was at a [employer] station yesterday when she slipped on a wet floor, struck her head, and went into a seizure. She was out for a few minutes. EMS was called and she was transported to ER. The patient states that she has a seizure almost every other day despite taking her meds. She is currently out and was supposed to see her neurologist on 04/04/18, but felt ill so did not keep the appt. She has been out of her MS meds for several weeks and was told by her physician's office that they were in the mail. Since arrival here she has had no further seizures and is feeling nearly normal. Ms. Santo states that she has not had a hospital admission for at least one year. Her MS was diagnosed because of extreme fatigue and an MRI scan that was diagnostic. She has had spells of optic neuritis in the rt. eye. She had been on interferon therapy, biut was taken off because of rash. She is currently on an oral agent, she thinks it is [place]. Past History Past Medical History: seizures Social history: , lives with family. denies: smoking Family history: hypertension, stroke, other (aunt with MS.) Medications and Allergies Allergies Allergy/AdvReac Type Severity Reaction Status Date / Time Penicillins Allergy Rash Verified 06/09/17 18:34 Home Medications Medication Instructions Recorded Confirmed Last Taken Type ALBUTEROL Inhaler [ProAir HFA 2 puff IH Q4H PRN #1 inhalation 06/11/17 04/05/18 Unknown Rx Inhaler] levETIRAcetam [Keppra TAB] 1,500 mg PO BID #180 tablet 04/03/18 04/05/18 Unknown Rx Active Meds: Active Medications Acetaminophen (Tylenol) 650 mg PO Q4H PRN PRN Reason: Pain MILD(1-3)/Fever >100.5/ABBASI Albuterol (Proventil) 2.5 mg IH Q4HRT PRN PRN Reason: Shortness Of Breath Dextrose (D50w (25gm) Syringe) 50 ml IV PRN PRN PRN Reason: Hypoglycemia Docusate Sodium (Colace) 100 mg PO BID [facility] Last Admin: 04/05/18 10:42 Dose: 100 mg Famotidine (Pepcid) 20 mg PO BID [facility] Last Admin: 04/05/18 10:42 Dose: 20 mg Insulin Human Lispro (Humalog) 0 unit SUB-Q ACHS [facility]; Protocol Last Admin: 04/05/18 13:17 Dose: Not Given Levetiracetam (Keppra) 1,500 mg PO BID [facility] Last Admin: 04/05/18 10:41 Dose: 1,500 mg Ondansetron HCl (Zofran) 4 mg IV Q8H PRN PRN Reason: Nausea And Vomiting Oxycodone/Acetaminophen (Percocet 5/325) 1 tab PO Q6H PRN PRN Reason: Pain, Moderate (4-6) Last Admin: 04/05/18 10:43 Dose: 1 tab Pneumococcal Polyvalent Vaccine (Pneumovax 23) 0.5 ml IM .ONCE ONE Stop: 04/06/18 12:01 Prednisone (Deltasone) 60 mg PO QDAY [facility] Sodium Chloride (Sodium Chloride Flush Syringe 10 Ml) 10 ml IV BID [facility] Last Admin: 04/05/18 10:44 Dose: 10 ml Sodium Chloride (Sodium Chloride Flush Syringe 10 Ml) 10 ml IV PRN PRN PRN Reason: LINE FLUSH Tramadol HCl (Ultram) 50 mg PO Q6HR PRN PRN Reason: Pain, Moderate (4-6) Review of Systems Constitutional: fatigue, no sweats, no weakness Ears, nose, mouth and throat: no tinnitis, no decreased hearing Cardiovascular: no chest pain, no orthopnea, no palpitations, no rapid/ irregular heart beat, no edema, no syncope, no lightheadedness, no shortness of breath Respiratory: no cough, no excessive sputum, no hemoptysis, no shortness of breath Gastrointestinal: no abdominal pain, no nausea, no vomiting, no diarrhea Genitourinary Female: no dysuria, no urinary frequency, no urgency Musculoskeletal: no neck stiffness, no neck pain, no low back pain Integumentary: no rash Neurological: head injury, seizures, confusion, memory loss, gait dysfunction, no double vision, no loss of vision Physical Examination - Vital Signs Vital Signs: Vital Signs Temp Pulse Resp BP Pulse Ox 98.8 F 78 16 148/105 100 04/04/18 23:43 04/04/18 23:43 04/04/18 23:43 04/04/18 23:43 04/04/18 23:43 Resting comfortably in bed. HEENT - no inflammation or lesions neck supple. Chest - clear. Heart - reg. rate, nl S-1, S-2. Abdomen - soft, nontender Extremities - no CCE. Neurological - Speech fluent, slightly slurred. [place] aide - EoMs full , no nustagmus. Face with left facial droop. V1, thru V3 intact. Hearing intact. Tongue midline. Harini - Symmetric, upper and lower extremities. Reflexes - + 2 bilaterally. Sensory - intact to touch and sharp Cerebellar - intact. Results - Laboratory Findings CBC and BMP: 04/05/18 03:06 04/05/18 03:06 Abnormal Lab Findings: Abnormal Labs 04/05/18 04/05/18 04/05/18 03:06 03:06 Unknown MCH 27 L [place] % (Auto) 8.2 H Potassium 3.2 L BUN 21 H Creatinine 0.6 L Glucose 117 H Urine WBC (Auto) 22.0 H U Epithel Cells (Auto) 26.0 H Assessment and Plan 42 year old female with history of MS and seizure disorder, ran out of meds and had a fall with resultant seizure 04/04/18. History of frequent seizures despite taking meds. (Question compliance). MRI with atrophy and evidence of white matter disease. Plan - Instructed patient to see her MS physician to review her meds including seizure meds. Meanwhile maintain Keppra. Pain meds as needed for bruising post fall.
[2018-04-06] MEDS: PERCOCET 5/325 PO PRN ×2 (04:44→14:16)
[2018-04-06 05:34] LABS: Basophils % (Auto) 0.8 % (0.0-1.8); Eosinophils # (Auto) 0.1 K/mm3 (0.0-0.4); Eosinophils % (Auto) 1.5 % (0.0-4.3); Hematocrit 33.4 % (30.3-42.9); Hemoglobin 10.8 gm/dl (10.1-14.3); Lymphocytes # (Auto) 1.7 K/mm3 (1.2-5.4); Lymphocytes % (Auto) 31.9 % (13.4-35.0); Mean Corpuscular HGB Conc 32 % (30-34); Mean Corpuscular Hemoglobin 27 pg (28-32); Mean Corpuscular Volume 82 fl (79-97); Monocytes # (Auto) 0.4 K/mm3 (0.0-0.8); Monocytes % (Auto) 7.3 % (0.0-7.3); Platelet Count 383 K/mm3 (140-440); Red Blood Count 4.09 M/mm3 (3.65-5.03); Red Cell Distribution Width 15.5 % (13.2-15.2)
[2018-04-06 05:49] LABS: BUN/Creatinine Ratio 32; Blood Urea Nitrogen 19 mg/dL (7-17); Calcium 8.5 mg/dL (8.4-10.2); Hemolysis Index 5
[2018-04-06] MEDS: PROVENTIL IH PRN ×2 (07:07→11:49)
[2018-04-06] MEDS: HumaLOG SUB-Q SCH ×4 (08:00→22:00)
[2018-04-06] MEDS: DELTASONE PO SCH (10:25)
[2018-04-06] MEDS: COLACE PO SCH ×2 (10:25→22:00)
[2018-04-06] MEDS: KEPPRA PO SCH ×2 (10:25→22:00)
[2018-04-06] MEDS: PEPCID PO SCH ×2 (10:25→22:00)
[2018-04-06] MEDS: SODIUM CHLORIDE FLUSH SYRINGE 10 ML IV SCH ×2 (10:26→22:00)
[2018-04-06] MEDS ORDERED: PNEUMOVAX 23 IM ONE (12:00)
--- NOTE | 2018-04-06 15:33 | Progress Note ---
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 She reports that she has seizures following the fall which lasted for a few minutes. She was brought to the ER by EMS. She reports that prior to this is been having some paresthesias in her R pressure became also had a facial area. She reports that she has been out of her MS medication for several weeks and was unable to follow up with her neurologist due to feeling a period on my examination the patient is awake alert oriented. Although she reports in the past spells of optic neuritis in the right eye and had been on interferon therapy this was taken off because of a rash. She denies any blurry vision at this time. MS flair Fall with subsequent syncope Hypokalemia - corrected Noncompliance with medication ?concusion - seizure DM plan Continue prednisone Seizure precautions Continue with Keppra Sliding scale insulin with consistent carbohydrates diet Neuro consult Normal CT scan of the brain and cervical spine MRI brain - consistent with multiple sclerosis. No evidence of acute or subacute ischemia. DVT and GI prophylaxis Counseling on compliance with her medication was done Plan after discussing the patient in detail patient verbalized understanding Patient will need medication review and refill on discharge Advance Directives: Yes Subjective Date of service: 04/06/18 Principal diagnosis: MS flair, syncope, seizure disorder, T2DM, hypokalemia, conscusion Interval history: Patient seen and examined. Lying in bed in no obvious distress. Able to move her right lower extremity. Objective - Exam Narrative Exam: Constitutional: Well-nourished well-developed. In no distress Head: Normocephalic atraumatic Eyes: Pupils are equal round and reactive to light Nose: No enlarged turbinates, no septal deviation. Mouth: Moist mucous membranes. Neck: Supple no thyromegaly. No bruit. No JVD Heart: Regular rate and rhythm, S1-S2 abnormal. No rubs murmurs or gallop Lungs: Clear to auscultation bilaterally no rales or rhonchi Abdomen: Soft, nontender. Bowel sound are present. Extremities: No edema no cyanosis and no clubbing. Neuro: Alert oriented Oriented x3. No focal sensory or motor deficit. Skin: No rashes no hyperemic spots Psychiatry: Euthymic. Calm. - Constitutional Vitals: Vital Signs - 12hr 04/06/18 04/06/18 04/06/18 05:06 07:06 07:07 Temperature 99.3 F Pulse Rate 98 H Pulse Rate [ 81 Bilateral Throughout] Respiratory 18 Rate Respiratory 16 Rate [Bilateral Throughout] Blood Pressure 112/72 O2 Sat by Pulse 100 100 Oximetry 04/06/18 04/06/18 04/06/18 07:17 11:49 11:59 Temperature Pulse Rate Pulse Rate [ 95 H 91 H 103 H Bilateral Throughout] Respiratory Rate Respiratory 16 16 16 Rate [Bilateral Throughout] Blood Pressure O2 Sat by Pulse Oximetry 04/06/18 13:25 Temperature 99.1 F Pulse Rate 116 H Pulse Rate [ Bilateral Throughout] Respiratory 19 Rate Respiratory Rate [Bilateral Throughout] Blood Pressure 130/84 O2 Sat by Pulse 98 Oximetry - Labs CBC & Chem 7: 04/06/18 04:34 04/06/18 04:34 Labs: Abnormal lab results 04/05/18 04/06/18 04/06/18 Range/Units 21:57 04:34 04:34 MCH 27 L (28-32) pg RDW 15.5 H (13.2-15.2) % Chloride 107.1 H (98-107) mmol/L BUN 19 H (7-17) mg/dL Creatinine 0.6 L (0.7-1.2) mg/dL POC Glucose 116 H (70-105) 04/06/18 Range/Units 11:29 MCH (28-32) pg RDW (13.2-15.2) % Chloride (98-107) mmol/L BUN (7-17) mg/dL Creatinine (0.7-1.2) mg/dL POC Glucose 188 H (70-105)
[2018-04-07] MEDS: HumaLOG SUB-Q SCH ×4 (07:30→21:30)
[2018-04-07] MEDS: KEPPRA PO SCH ×2 (10:03→21:27)
[2018-04-07] MEDS: PEPCID PO SCH ×2 (10:03→21:27)
[2018-04-07] MEDS: LEVAQUIN PO SCH (10:03)
[2018-04-07] MEDS: COLACE PO SCH ×2 (10:03→21:27)
[2018-04-07] MEDS: DELTASONE PO SCH (10:03)
[2018-04-07] MEDS: PERCOCET 5/325 PO PRN ×2 (10:15→21:27)
--- NOTE | 2018-04-07 14:07 | Progress Note ---
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 She reports that she has seizures following the fall which lasted for a few minutes. She was brought to the ER by EMS. She reports that prior to this is been having some paresthesias in her R pressure became also had a facial area. She reports that she has been out of her MS medication for several weeks and was unable to follow up with her neurologist due to feeling a period on my examination the patient is awake alert oriented. Although she reports in the past spells of optic neuritis in the right eye and had been on interferon therapy this was taken off because of a rash. She denies any blurry vision at this time. MS flair Fall with subsequent syncope Hypokalemia - corrected Noncompliance with medication ?concusion - seizure DM plan Continue prednisone Seizure precautions Continue with Keppra Sliding scale insulin with consistent carbohydrates diet Neuro consult input noted Normal CT scan of the brain and cervical spine MRI brain - consistent with multiple sclerosis. No evidence of acute or subacute ischemia. DVT and GI prophylaxis Counseling on compliance with her medication was done Plan after discussing the patient in detail patient verbalized understanding Patient will need medication review and refill on discharge Advance Directives: Yes Subjective Date of service: 04/07/18 Principal diagnosis: MS flair, syncope, seizure disorder, T2DM, hypokalemia, conscusion Interval history: Patient seen and examined. Lying in bed in no obvious distress. Able to move her right lower extremity. No more seizures Objective - Exam Narrative Exam: Constitutional: Well-nourished well-developed. In no distress Head: Normocephalic atraumatic Eyes: Pupils are equal round and reactive to light Nose: No enlarged turbinates, no septal deviation. Mouth: Moist mucous membranes. Neck: Supple no thyromegaly. No bruit. No JVD Heart: Regular rate and rhythm, S1-S2 abnormal. No rubs murmurs or gallop Lungs: Clear to auscultation bilaterally no rales or rhonchi Abdomen: Soft, nontender. Bowel sound are present. Extremities: No edema no cyanosis and no clubbing. Neuro: Alert oriented Oriented x3. No focal sensory or motor deficit. Skin: No rashes no hyperemic spots Psychiatry: Euthymic. Calm. - Constitutional Vitals: Vital Signs - 12hr 04/07/18 04/07/18 06:08 12:30 Temperature 99.1 F 99.6 F Pulse Rate 97 H 91 H Respiratory 20 20 Rate Blood Pressure 146/99 142/98 O2 Sat by Pulse 100 98 Oximetry - Labs CBC & Chem 7: 04/06/18 04:34 04/06/18 04:34 Labs: Abnormal lab results 04/06/18 04/06/18 Range/Units 16:48 21:09 POC Glucose 176 H 162 H (70-105)
[2018-04-07] MEDS: SODIUM CHLORIDE FLUSH SYRINGE 10 ML IV SCH ×2 (19:30→22:05)
[2018-04-07] MEDS ORDERED: ROBITUSSIN PO ONE (21:15)
[2018-04-07] MEDS ORDERED: LOVENOX SUB-Q SCH (22:00)
[2018-04-08 05:03] LABS: Basophils % (Auto) 0.5 % (0.0-1.8); Eosinophils % (Auto) 0.1 % (0.0-4.3); Hematocrit 29.7 % (30.3-42.9); Hemoglobin 9.8 gm/dl (10.1-14.3); Lymphocytes # (Auto) 2.3 K/mm3 (1.2-5.4); Lymphocytes % (Auto) 23.6 % (13.4-35.0); Mean Corpuscular HGB Conc 33 % (30-34); Mean Corpuscular Hemoglobin 27 pg (28-32); Mean Corpuscular Volume 80 fl (79-97); Monocytes # (Auto) 0.6 K/mm3 (0.0-0.8); Platelet Count 335 K/mm3 (140-440); Red Cell Distribution Width 15.4 % (13.2-15.2)
[2018-04-08 05:30] LABS: Alanine Aminotransferase 9 units/L (7-56); Albumin 3.1 g/dL (3.9-5); BUN/Creatinine Ratio 37; Blood Urea Nitrogen 22 mg/dL (7-17); Calcium 8.6 mg/dL (8.4-10.2); Hemolysis Index 3
[2018-04-08] MEDS: HumaLOG SUB-Q SCH (08:18)
[2018-04-08 11:23] VITALS: BP 154/94
[2018-04-08] MEDS: DELTASONE PO SCH (11:23)
[2018-04-08] MEDS: LEVAQUIN PO SCH (11:24)
[2018-04-08] MEDS: PEPCID PO SCH (11:24)
[2018-04-08] MEDS: COLACE PO SCH (11:24)
[2018-04-08] MEDS: KEPPRA PO SCH (11:24)
[2018-04-08] MEDS: SODIUM CHLORIDE FLUSH SYRINGE 10 ML IV SCH (11:25)
[2018-04-08] MEDS: PERCOCET 5/325 PO PRN (11:28)
--- NOTE | 2018-04-08 12:37 | Discharge Summary ---
Providers - Providers Date of Admission: 04/05/18 07:16 Date of discharge: 04/08/18 Attending physician: GANESH HODGES 04/05/18 09:48 Consult to Physician [CONS] Routine Comment: Consulting Provider: LIZZETTE VICENTE Physician Instructions: Reason For Exam: MS flare 04/05/18 10:57 Physical Therapy Evaluation and Treat [CONS] Routine Comment: Reason For Exam: difficulty with ambulation Primary care physician: BRAN MIXER Hospitalization Reason for admission: MS flare, Sz disorder, for possible cerebral concussion, hypokalemia. T2DM Condition: Stable Pertinent studies: CT of the head that showed no acute injuries. Findings were consistent with multiple sclerosis. CT cervical spine was normal. MRI of the brain showed no acute infarction. 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 She reports that she has seizures following the fall which lasted for a few minutes. She was brought to the ER by EMS. She reports that prior to this is been having some paresthesias in her R arn as well as her facial area. She reports that she has been out of her MS medication for several weeks and was unable to follow up with her neurologist due to feeling a period on my examination the patient is awake alert oriented. Although she reports in the past spells of optic neuritis in the right eye and had been on interferon therapy this was taken off because of a rash. She denies any blurry vision at this time. On admission patient was high-dose steroids, Keppra, 1500 mg twice a day. Laboratory was unremarkable for any acute event. MRI showed evidence of right metastatic changes consistent with multiple sclerosis. Patient had no more seizures while on admission. Weakness in the arm improved. As well as in the lower extremities. Hyperglycemia identified. A1c was 5.3. Patient was placed on oral hypoglycemic agents as his hypoglycemia was thought to be secondary to high dose of steroid. Patient is therefore being discharged today to follow primary care physician as well as a neurologist in 3 days and 10 days respectively Disposition: TO HOME OR SELFCARE Time spent for discharge: 38 min - Discharge Diagnoses (1) Cerebral concussion Status: Acute (2) Multiple sclerosis exacerbation Status: Acute (3) Acute cystitis without hematuria Status: Acute (4) Hx of seizure disorder Status: Acute Core Measure Documentation - Palliative Care Palliative Care/ Comfort Measures: Not Applicable - Core Measures Any of the following diagnoses?: none Exam - Physical Exam Narrative exam: Constitutional: Well-nourished well-developed.In no distress Head: Normocephalic atraumatic Eyes: Pupils are equal round and reactive to light Nose: No enlarged turbinates, no septal deviation. Mouth: Moist mucous membranes. Neck: Supple no thyromegaly. No bruit. No JVD Heart: Regular rate and rhythm, S1-S2 abnormal. No rubs murmurs or gallop Lungs: Clear to auscultation bilaterally no rales or rhonchi Abdomen: Soft, nontender. Bowel sound are present. Extremities: No edema no cyanosis and no clubbing. Neuro: Alert oriented Oriented x3. Weak in the lower extremities Skin: No rashes no hyperemic spots Psychiatry: Euthymic. Calm. - Constitutional Vitals: Temp Pulse Resp BP Pulse Ox 98.9 F 83 15 154/94 100 04/08/18 11:14 04/08/18 11:14 04/08/18 11:14 04/08/18 11:14 04/08/18 11:14 Plan Activity: advance as tolerated, fall precautions Weight Bearing Status: Weight Bear as Tolerated Diet: diabetic Follow up with: PRIMARY CARE, [Primary Care Provider] - 3-5 Days Prescriptions: ALBUTEROL NEB's [Proventil 0.083% NEBS] 2.5 mg IH TID PRN #100 neb PRN Reason: Wheezing Docusate Sodium [Colace CAP] 100 mg PO BID #60 capsule Famotidine [Pepcid] 20 mg PO DAILY #30 tablet levETIRAcetam [Keppra TAB] 1,500 mg PO BID #60 tablet Levofloxacin [Levaquin TAB] 500 mg PO Q24HR #5 tablet Lispro Insulin [Humalog] 6 unit SUB-Q ACHS #300 units oxyCODONE /ACETAMINOPHEN [Percocet 5/325 mg] 1 tab PO Q8H PRN #18 tablet PRN Reason: Pain, Moderate (4-6) predniSONE [Deltasone] 60 mg PO QDAY #10 tablet
[2018-04-08] MEDS: PROVENTIL IH PRN (14:39)
== END 2018-04-08 23:40 | disposition home health service (06) | DRG 59 ==
LOC: ED 22:17 → 3A 04-05 07:16
PROVIDERS: ADMIT Internal Medicine; ATTEND Family Medicine
PROC: 3E0234Z Introduction of Serum, Toxoid and Vaccine into Muscle, Percutaneous Approach (ICD-10-PCS; principal; 2018-04-06)
DX: G35 Multiple sclerosis (principal); N30.00 Acute cystitis without hematuria; S06.0X9A Concussion with loss of consciousness of unspecified duration, initial encounter; E87.6 Hypokalemia; R55 Syncope and collapse; G40.909 Epilepsy, unspecified, not intractable, without status epilepticus; T38.0X5A Adverse effect of glucocorticoids and synthetic analogues, initial encounter; E11.65 Type 2 diabetes mellitus with hyperglycemia; I10 Essential (primary) hypertension; F20.9 Schizophrenia, unspecified; W01.0XXA Fall on same level from slipping, tripping and stumbling without subsequent striking against object, initial encounter; Z91.14 Patient's other noncompliance with medication regimen; Z82.49 Family history of ischemic heart disease and other diseases of the circulatory system; Z82.3 Family history of stroke; Z88.0 Allergy status to penicillin; Z79.899 Other long term (current) drug therapy; Z23 Encounter for immunization; Y93.89 Activity, other specified; Y92.89 Other specified places as the place of occurrence of the external cause; Y99.8 Other external cause status
CPT/HCPCS: 36415; 70450; 70551; 72125; 80048; 80053; 80177; 81001; 81025; 82962; 83036; 84484; 84703; 85025; 90732; 93005; 93010; 94640; 94760; J1650; J1815; J7030; J7512

== ENCOUNTER 2018-04-13 10:08 | Emergency (ER) | payer MEDICAID ==
--- NOTE | 2018-04-13 11:13 | Emergency Department Report ---
Blank Doc - Documentation Documentation: Patient is 42 years old female with history of multiple sclerosis, diabetes and hypertension. Patient presented to the ER complaining off headache left eye pain for the last 2 days. Patient stated that this is typical for her MS exacerbation. She denied any fever or neck pain. Patient stated that she is compliant with her medication. Labs, steroid and pain medication ordered. The patient will be best served in our main ED.
[2018-04-13] MEDS ORDERED: ZOFRAN IV ONE (11:15)
[2018-04-13] MEDS ORDERED: MORPHINE IV ONE (11:15)
[2018-04-13 11:37] LABS: Basophils % (Auto) 0.1 % (0.0-1.8); Hematocrit 32.8 % (30.3-42.9); Hemoglobin 11.1 gm/dl (10.1-14.3); Lymphocytes # (Auto) 0.8 K/mm3 (1.2-5.4); Lymphocytes % (Auto) 8.5 % (13.4-35.0); Mean Corpuscular HGB Conc 34 % (30-34); Mean Corpuscular Hemoglobin 27 pg (28-32); Mean Corpuscular Volume 80 fl (79-97); Monocytes # (Auto) 0.2 K/mm3 (0.0-0.8); Monocytes % (Auto) 2.4 % (0.0-7.3); Platelet Count 427 K/mm3 (140-440); Red Cell Distribution Width 14.7 % (13.2-15.2)
[2018-04-13 12:00] LABS: Alanine Aminotransferase 16 units/L (7-56); BUN/Creatinine Ratio 31; Blood Urea Nitrogen 22 mg/dL (7-17); Calcium 9.3 mg/dL (8.4-10.2); Hemolysis Index 7
[2018-04-13] MEDS ORDERED: SOLU-Medrol 1,000 MG in NACL 0.9% 250ML 250 ML IV ONE (12:00)
[2018-04-13] MEDS ORDERED: DUONEB *Not for PRN Use IH ONE (12:57)
[2018-04-13 14:51] LABS: Bacteria,Urine 1+ /HPF (Negative); Bilirubin,Urine NEG (Negative); Blood,Urine NEG (Negative); Color,Urine Yellow (Yellow); Mucus,Urine FEW /HPF
[2018-04-13] MEDS ORDERED: NORCO 10/325 PO ONE (17:06)
[2018-04-13] MEDS ORDERED: KEPPRA PO ONE (17:08)
[2018-04-13 17:22] LABS: HCG Qualitative,Urine Negative (Negative)
[2018-04-13] MEDS ORDERED: NACL 0.9% 1000 ML 1,000 ML IV ONE (17:31)
--- NOTE | 2018-04-13 17:40 | Emergency Department Report ---
ED Headache HPI - General Chief Complaint: Headache Stated Complaint: HEAD INJURY/SEIZERS Time Seen by Provider: 04/13/18 10:45 Source: patient, old records Exam Limitations: no limitations - History of Present Illness Initial Comments: 42-year-old female past medical history multiple sclerosis, seizures, schizophrenia, hypertension, diabetes, and asthma presents to the Hospital complaining of headache as per triage complaint. Patient presented here yesterday that did not answer 3 and therefore fell asleep and was taken out of the system. A new chart was generated for patient to be seen today. Patient states she's had a headache to the top of her head since yesterday and having pain to her left leg from the knee down to her foot. Patient states she typically takes hydrocodone 10 mg for pain but has been out for the past 3 weeks. She states her neurologist Dr. Main prescribes her medications. Patient 's concern is she is having an MS flare. Patient complains of some mild right eye pain when specifically questioned but denies any change in vision. Patient has chronic left arm weakness and numbness due to MS and chronically ambulates with a walker. She denies any change in her baseline weakness or numbness. As per recent discharge summary patient has a history of right eye optic neuritis and has been treated with interferon in high dose steroids in the past. Previous medical records were reviewed and patient has multiple recent ER visits and has had a CAT scan of her head on March 19, April 01, and April 05. She's also had a CT cervical spine April 05 in the MRI of the brain without contrast on April 05. No acute findings were found on his imaging studies and MRI showed extensive white matter disease consistent with multiple sclerosis. On April 08 patient was prescribed prednisone 60 mg daily 10 tablets and Percocet 5/325 every 8 hours 18 tablet. As per [place] prescription monitoring system this med will filled on 04/09 and should last 6 days. Allergies/Adverse Reactions: Allergies Penicillins Allergy (Verified 06/09/17 18:34) Rash Home Medications: Ambulatory Orders ALBUTEROL Inhaler [ProAir HFA Inhaler] 2 puff IH Q4H PRN #1 inhalation 06/11/17 ALBUTEROL NEB's [Proventil 0.083% NEBS] 2.5 mg IH Q4HRT PRN nebu 04/08/18 ALBUTEROL NEB's [Proventil 0.083% NEBS] 2.5 mg IH TID PRN #100 neb 04/08/18 Docusate Sodium [Colace CAP] 100 mg PO BID #60 capsule 04/08/18 Famotidine [Pepcid] 20 mg PO DAILY #30 tablet 04/08/18 Levofloxacin [Levaquin TAB] 500 mg PO Q24HR #5 tablet 04/08/18 Lispro Insulin [Humalog] 6 unit SUB-Q ACHS #300 units 04/08/18 levETIRAcetam [Keppra TAB] 1,500 mg PO BID #60 tablet 04/08/18 oxyCODONE /ACETAMINOPHEN [Percocet 5/325 mg] 1 tab PO Q8H PRN #18 tablet predniSONE [Deltasone] 60 mg PO QDAY #10 tablet 04/08/18 HYDROcodone/APAP 5-325 [[place] 5/325] 1 each PO Q6HR PRN #8 tablet 04/13/18 ED Review of Systems ROS: Stated complaint: HEAD INJURY/SEIZERS Other details as noted in HPI Comment: All other systems reviewed and negative ED Past Medical Hx - Past Medical History Hx Hypertension: Yes Hx Congestive Heart Failure: No Hx Diabetes: Yes Hx Seizures: Yes Hx Psychiatric Treatment: Yes (Schizophrenia) Hx Asthma: Yes Hx COPD: No Hx HIV: No Additional medical history: Multiple sclerosis - Surgical History Additional Surgical History: X3 - Social History Smoking Status: Unknown if ever smoked Substance Use Type: None - Medications Home Medications: Home Medications Medication Instructions Recorded Confirmed Last Taken Type ALBUTEROL Inhaler [ProAir HFA 2 puff IH Q4H PRN #1 inhalation 06/11/17 04/05/18 Unknown Rx Inhaler] ALBUTEROL NEB's [Proventil 0.083% 2.5 mg IH Q4HRT PRN nebu 04/08/18 Unknown Rx NEBS] ALBUTEROL NEB's [Proventil 0.083% 2.5 mg IH TID PRN #100 neb 04/08/18 Unknown Rx NEBS] Docusate Sodium [Colace CAP] 100 mg PO BID #60 capsule 04/08/18 Unknown Rx Famotidine [Pepcid] 20 mg PO DAILY #30 tablet 04/08/18 Unknown Rx Levofloxacin [Levaquin TAB] 500 mg PO Q24HR #5 tablet 04/08/18 Unknown Rx Lispro Insulin [Humalog] 6 unit SUB-Q ACHS #300 units 04/08/18 Unknown Rx levETIRAcetam [Keppra TAB] 1,500 mg PO BID #60 tablet 04/08/18 Unknown Rx oxyCODONE /ACETAMINOPHEN [Percocet 1 tab PO Q8H PRN #18 tablet 04/08/18 Unknown Rx 5/325 mg] predniSONE [Deltasone] 60 mg PO QDAY #10 tablet 04/08/18 Unknown Rx HYDROcodone/APAP 5-325 [[place] 1 each PO Q6HR PRN #8 tablet 04/13/18 Unknown Rx 5/325] ED Physical Exam - General Limitations: No Limitations - Other Other exam information: General: No limitations, patient is alert in no acute distress Head exam: Atraumatic, normocephalic Eyes exam: Normal appearance, pupils equal reactive to light, extraocular movements intact ENT: Moist mucous membrane, normal oropharynx Neck exam: Normal inspection, full range of motion, no meningismus nontender Respiratory exam: Clear to auscultation bilateral, no wheezes, rales, crackles Cardiovascular: Normal rate and rhythm, normal heart sounds Abdomen: Soft, nondistended, and nontender, with normal bowel sounds, no rebound, or guarding Extremity: Full range of motion normal inspection no deformity Back: Normal Inspection, full range of motion, no tenderness Neurologic: Alert, oriented x3, cranial nerves intact, left arm forces 5 strength compared to right 5/5. Right leg 5/5 strength compared to know antigravity movement of left leg 2/5 strength. Patient states she does not have any sensation to touch of the left arm or left leg. Normal right-sided sensation Psychiatric: normal affect, normal mood Skin: Warm, dry, intact ED Course Vital Signs 04/13/18 04/13/18 04/13/18 10:14 12:25 12:30 Temperature 98.8 F Pulse Rate 101 H 117 H 114 H Respiratory 16 20 Rate Blood Pressure 157/99 146/71 O2 Sat by Pulse 99 99 Oximetry 04/13/18 04/13/18 04/13/18 13:00 13:30 14:00 Temperature Pulse Rate 117 H 103 H Respiratory 21 21 Rate Blood Pressure 165/112 138/92 138/92 O2 Sat by Pulse 99 89 Oximetry 04/13/18 04/13/18 04/13/18 14:30 15:00 15:30 Temperature Pulse Rate Respiratory Rate Blood Pressure 138/92 129/85 131/76 O2 Sat by Pulse 96 99 99 Oximetry 04/13/18 04/13/18 04/13/18 16:00 16:30 17:00 Temperature Pulse Rate Respiratory Rate Blood Pressure 130/73 130/73 127/66 O2 Sat by Pulse 99 100 100 Oximetry 04/13/18 04/13/18 04/13/18 17:30 18:00 18:30 Temperature Pulse Rate 92 H Respiratory 17 Rate Blood Pressure 168/130 135/87 148/85 O2 Sat by Pulse 100 88 98 Oximetry - Consultations Consultation #1: 04/13/18 17:31 case d/w Dr Shirley Cardozo [employer] neurologist for Dr Main (formerly [facility]) she is not personally familiar with the patient but states that symptoms with pain only is not typically not a sign of multiple sclerosis. She will make a note for Dr. main to follow-up on patient for optimization of her medications and multiple sclerosis treatment ED Medical Decision Making - Lab Data Result diagrams: 04/13/18 11:23 04/13/18 11:23 Lab Results 04/13/18 04/13/18 04/13/18 Range/Units 11:23 11:23 14:38 WBC 9.7 (4.5-11.0) K/mm3 RBC 4.10 (3.65-5.03) M/mm3 Hgb 11.1 (10.1-14.3) gm/dl Hct 32.8 (30.3-42.9) % MCV 80 (79-97) fl MCH 27 L (28-32) pg MCHC 34 (30-34) % RDW 14.7 (13.2-15.2) % Plt Count 427 (140-440) K/mm3 Lymph % (Auto) 8.5 L (13.4-35.0) % [place] % (Auto) 2.4 (0.0-7.3) % Eos % (Auto) 0.0 (0.0-4.3) % Baso % (Auto) 0.1 (0.0-1.8) % Lymph # 0.8 L (1.2-5.4) K/mm3 [place] # 0.2 (0.0-0.8) K/mm3 Eos # 0.0 (0.0-0.4) K/mm3 Baso # 0.0 (0.0-0.1) K/mm3 Seg Neutrophils % 89.0 H (40.0-70.0) % Seg Neutrophils # 8.6 H (1.8-7.7) K/mm3 Sodium 140 (137-145) mmol/L Potassium 3.6 (3.6-5.0) mmol/L Chloride 101.3 (98-107) mmol/L Carbon Dioxide 24 (22-30) mmol/L Anion Gap 18 mmol/L BUN 22 H (7-17) mg/dL Creatinine 0.7 (0.7-1.2) mg/dL Estimated GFR > 60 ml/min BUN/Creatinine Ratio 31 % Glucose 120 H (65-100) mg/dL Calcium 9.3 (8.4-10.2) mg/dL Total Bilirubin 0.50 (0.1-1.2) mg/dL AST 17 (5-40) units/L ALT 16 (7-56) units/L Alkaline Phosphatase 71 (35-129) units/L Total Protein 7.5 (6.3-8.2) g/dL Albumin 4.0 (3.9-5) g/dL Albumin/Globulin Ratio 1.1 % Urine Color Yellow (Yellow) Urine Turbidity Clear (Clear) Urine pH 5.0 (5.0-7.0) Ur Specific [place] 1.031 H (1.003-1.030) Urine Protein 30 mg/dl (Negative) mg/dL Urine Glucose (UA) Neg (Negative) mg/dL Urine Ketones Neg (Negative) mg/dL Urine Blood Neg (Negative) Urine Nitrite Neg (Negative) Urine Bilirubin Neg (Negative) Urine Urobilinogen 2.0 (<2.0) mg/dL Ur Leukocyte Esterase Neg (Negative) Urine WBC (Auto) 1.0 (0.0-6.0) /HPF Urine RBC (Auto) 2.0 (0.0-6.0) /HPF U Epithel Cells (Auto) 6.0 (0-13.0) /HPF Urine Bacteria (Auto) 1+ (Negative) /HPF Urine Mucus Few /HPF Urine HCG, Qual (Negative) 04/13/18 Range/Units 17:04 WBC (4.5-11.0) K/mm3 RBC (3.65-5.03) M/mm3 Hgb (10.1-14.3) gm/dl Hct (30.3-42.9) % MCV (79-97) fl MCH (28-32) pg MCHC (30-34) % RDW (13.2-15.2) % Plt Count (140-440) K/mm3 Lymph % (Auto) (13.4-35.0) % [place] % (Auto) (0.0-7.3) % Eos % (Auto) (0.0-4.3) % Baso % (Auto) (0.0-1.8) % Lymph # (1.2-5.4) K/mm3 [place] # (0.0-0.8) K/mm3 Eos # (0.0-0.4) K/mm3 Baso # (0.0-0.1) K/mm3 Seg Neutrophils % (40.0-70.0) % Seg Neutrophils # (1.8-7.7) K/mm3 Sodium (137-145) mmol/L Potassium (3.6-5.0) mmol/L Chloride (98-107) mmol/L Carbon Dioxide (22-30) mmol/L Anion Gap mmol/L BUN (7-17) mg/dL Creatinine (0.7-1.2) mg/dL Estimated GFR ml/min BUN/Creatinine Ratio % Glucose (65-100) mg/dL Calcium (8.4-10.2) mg/dL Total Bilirubin (0.1-1.2) mg/dL AST (5-40) units/L ALT (7-56) units/L Alkaline Phosphatase (35-129) units/L Total Protein (6.3-8.2) g/dL Albumin (3.9-5) g/dL Albumin/Globulin Ratio % Urine Color (Yellow) Urine Turbidity (Clear) Urine pH (5.0-7.0) Ur Specific [place] (1.003-1.030) Urine Protein (Negative) mg/dL Urine Glucose (UA) (Negative) mg/dL Urine Ketones (Negative) mg/dL Urine Blood (Negative) Urine Nitrite (Negative) Urine Bilirubin (Negative) Urine Urobilinogen (<2.0) mg/dL Ur Leukocyte Esterase (Negative) Urine WBC (Auto) (0.0-6.0) /HPF Urine RBC (Auto) (0.0-6.0) /HPF U Epithel Cells (Auto) (0-13.0) /HPF Urine Bacteria (Auto) (Negative) /HPF Urine Mucus /HPF Urine HCG, Qual Negative (Negative) - Medical Decision Making Patient is not exhibiting any new neurologic symptoms. Patient is complaining of pain related complaints that improved with ED treatment of morphine and hydrocodone. No signs of acute infection or UTI. Patient states she does not have any narcotics at home but did feel Percocet prescription 3 days ago as for [place] prescription monitoring site. I reached out to patient's primary neurologist to express my concern for repeated ER visits here in the lack of her neurology follow-up for MS treatment. They will recheck out to patient. Patient was provided 1 L of normal saline for mild dehydration as indicated by elevated as is a gravity in urine and mild BUN elevation. Positive improvement in heart rate. To prevent sz activity, pt was given keppra since she did not take her dose today. - Differential Diagnosis MS flare, chronic pain syndrome, UTI Critical Care Time: No Critical care attestation.: If time is entered above; I have spent that time in minutes in the direct care of this critically ill patient, excluding procedure time. ED Disposition Clinical Impression: Chronic pain disorder, History of multiple sclerosis, Left-sided weakness, Dehydration Disposition: DC-01 TO HOME OR SELFCARE Is pt being admited?: No Does the pt Need Aspirin: No Condition: Stable Instructions: Chronic Pain (ED), Dehydration (ED) Additional Instructions: Taken medication as prescribed. It is very important to follow-up with your neurologist Dr Main for further treatment of your multiple sclerosis and chronic pain. Prescriptions: HYDROcodone/APAP 5-325 [[place] 5/325] 1 each PO Q6HR PRN #8 tablet PRN Reason: Pain Referrals: PRIMARY CARE, [Primary Care Provider] - 3-5 Days MD Parviz [Other] - 3-5 Days (neurologist) Time of Disposition: 19:12
[2018-04-13 18:50] VITALS: BP 148/85
== END 2018-04-13 20:15 | disposition home or self-care (01) ==
LOC: ED 10:08
DX: E86.0 Dehydration (principal); M62.81 Muscle weakness (generalized); G35 Multiple sclerosis; G89.29 Other chronic pain; I10 Essential (primary) hypertension; E11.9 Type 2 diabetes mellitus without complications; F20.9 Schizophrenia, unspecified; J45.909 Unspecified asthma, uncomplicated; Z79.4 Long term (current) use of insulin; Z79.899 Other long term (current) drug therapy; Z88.0 Allergy status to penicillin
CPT/HCPCS: 36415; 80053; 81001; 81025; 85025; 96361; 96365; 96375; 99284; J2270; J2405; J2930; J7030; J7050

== ENCOUNTER 2018-04-20 23:06 | Emergency (ER) | payer MEDICAID | END 2018-04-21 | disposition left against medical advice (07) | LOC: ED 23:06 | DX: Z00.8 Encounter for other general examination (principal); Z53.21 Procedure and treatment not carried out due to patient leaving prior to being seen by health care provider ==

== ENCOUNTER 2018-09-29 12:14 | Emergency (ER) | payer MEDICAID ==
--- NOTE | 2018-09-29 12:29 | Emergency Department Report ---
ED General Adult HPI - General Stated complaint: LEG PAIN Time Seen by Provider: 09/29/18 12:16 Source: patient, EMS - History of Present Illness Initial comments: Patient is 42 years old female with history of multiple sclerosis, hypertension and seizure. Patient presented to the ER via EMS after she was released from group home this morning, patient presented for evaluation of headache and bilateral lower extremity pain. Patient stated that she fell 2 days ago and hit her head. Patient denied any loss of consciousness, knee weakness, numbness or tingling sensation. No bowel or bladder incontinence. Patient denied any other injuries. -: days(s) - Related Data Previous Rx's Medication Instructions Recorded Last Taken Type ALBUTEROL NEB's [Proventil 0.083% 2.5 mg IH TID PRN #100 neb 04/08/18 Unknown Rx NEBS] ALBUTEROL Inhaler (OR & NICU) 2 puff IH Q4H PRN #1 inhalation 08/31/18 Unknown Rx [ProAir HFA Inhaler] ALBUTEROL NEB's [Proventil 0.083% 2.5 mg IH Q4HRT PRN #120 nebu 08/31/18 Unknown Rx NEBS] Acetaminophen [Acetaminophen TAB] 650 mg PO Q4H PRN #60 tablet 08/31/18 Unknown Rx Amlodipine Besylate 5 mg PO DAILY #30 08/31/18 Unknown Rx Docusate Sodium [Colace CAP] 100 mg PO BID #60 capsule 08/31/18 Unknown Rx Famotidine [Pepcid] 20 mg PO DAILY #30 tablet 08/31/18 Unknown Rx HYDROcodone/APAP 5-325 [[place] 1 each PO Q6HR PRN #8 tablet 08/31/18 Unknown Rx 5-325 mg TAB] Lispro Insulin [Humalog] 6 unit SUB-Q ACHS #300 units 08/31/18 Unknown Rx levETIRAcetam [Keppra TAB] 1,500 mg PO BID 30 Days #60 tablet 08/31/18 Unknown Rx oxyCODONE /ACETAMINOPHEN [Percocet 1 tab PO Q8H PRN #30 tablet 08/31/18 Unknown Rx 5/325 mg] Allergies Allergy/AdvReac Type Severity Reaction Status Date / Time Penicillins Allergy Rash Verified 04/21/18 07:14 ED Review of Systems ROS: Stated complaint: LEG PAIN Other details as noted in HPI Comment: All other systems reviewed and negative Constitutional: denies: fever Eyes: denies: eye pain Cardiovascular: denies: chest pain, palpitations, dyspnea on exertion Gastrointestinal: denies: abdominal pain, nausea, vomiting, diarrhea, constipation, hematemesis, melena, hematochezia Musculoskeletal: denies: back pain Neurological: headache. denies: weakness, numbness, paresthesias, confusion, abnormal gait ED Past Medical Hx - Past Medical History Hx Hypertension: Yes Hx Congestive Heart Failure: No Hx Diabetes: Yes Hx Sickle Cell Disease: No Hx Arthritis: Yes Hx Seizures: Yes Hx Psychiatric Treatment: Yes (Schizophrenia) Hx Asthma: Yes Hx COPD: No Hx HIV: No Additional medical history: Multiple sclerosis - Surgical History Additional Surgical History: X3 - Social History Smoking Status: Never Smoker - Medications Home Medications: Home Medications Medication Instructions Recorded Confirmed Last Taken Type ALBUTEROL NEB's [Proventil 0.083% 2.5 mg IH TID PRN #100 neb 04/08/18 08/30/18 Unknown Rx NEBS] ALBUTEROL Inhaler (OR & NICU) 2 puff IH Q4H PRN #1 inhalation 08/31/18 Unknown Rx [ProAir HFA Inhaler] ALBUTEROL NEB's [Proventil 0.083% 2.5 mg IH Q4HRT PRN #120 nebu 08/31/18 Unknown Rx NEBS] Acetaminophen [Acetaminophen TAB] 650 mg PO Q4H PRN #60 tablet 08/31/18 Unknown Rx Amlodipine Besylate 5 mg PO DAILY #30 08/31/18 Unknown Rx Docusate Sodium [Colace CAP] 100 mg PO BID #60 capsule 08/31/18 Unknown Rx Famotidine [Pepcid] 20 mg PO DAILY #30 tablet 08/31/18 Unknown Rx HYDROcodone/APAP 5-325 [[place] 1 each PO Q6HR PRN #8 tablet 08/31/18 Unknown Rx 5-325 mg TAB] Lispro Insulin [Humalog] 6 unit SUB-Q ACHS #300 units 08/31/18 Unknown Rx levETIRAcetam [Keppra TAB] 1,500 mg PO BID 30 Days #60 tablet 08/31/18 Unknown Rx oxyCODONE /ACETAMINOPHEN [Percocet 1 tab PO Q8H PRN #30 tablet 08/31/18 Unknown Rx 5/325 mg] ED Physical Exam - General General appearance: alert, in no apparent distress - Head Head exam: Present: atraumatic, normocephalic, normal inspection - Eye Eye exam: Present: normal appearance - ENT ENT exam: Present: normal exam, normal orophraynx, mucous membranes moist - Neck Neck exam: Present: normal inspection, full ROM. Absent: tenderness, meningismus, lymphadenopathy, thyromegaly - Respiratory Respiratory exam: Present: normal lung sounds bilaterally - Cardiovascular Cardiovascular Exam: Present: regular rate, normal rhythm, normal heart sounds - GI/Abdominal GI/Abdominal exam: Present: soft, normal bowel sounds. Absent: distended, tenderness, guarding, rebound, rigid, organomegaly, mass, bruit, pulsatile mass - Extremities Exam Extremities exam: Present: normal inspection, full ROM, normal capillary refill - Back Exam Back exam: Present: normal inspection, full ROM. Absent: CVA tenderness (R), CVA tenderness (L), muscle spasm, paraspinal tenderness - Neurological Exam Neurological exam: Present: alert, oriented X3, CN II-XII intact - Skin Skin exam: Present: warm, intact, normal color ED Course Vital Signs 09/29/18 12:47 Temperature 98.4 F Pulse Rate 80 Respiratory 20 Rate Blood Pressure 137/84 [Left] O2 Sat by Pulse 100 Oximetry ED Medical Decision Making - Lab Data Result diagrams: 09/29/18 13:09 09/29/18 13:09 - Radiology Data Radiology results: report reviewed CT brain is negative for acute finding. - Medical Decision Making Patient is 42 years old female with history of multiple sclerosis, hypertension and seizure. Patient presented to the ER via EMS after she was released from group home this morning, patient presented for evaluation of headache and bilateral lower extremity pain. Patient stated that she fell 2 days ago and hit her head. Patient denied any loss of consciousness, knee weakness, numbness or tingling sensation. No bowel or bladder incontinence. Patient denied any other injuries. Patient remained stable. CT brain is negative for acute finding. Labs reviewed as unremarkable. Patient's Asking for Percocet she was given Tylenol for pain and she is not satisfied with that. I believe there is a narcotic seeking behavior. I advised patient to follow-up with pain medicine clinic and I will give [facility] for follow-up. Critical care attestation.: If time is entered above; I have spent that time in minutes in the direct care of this critically ill patient, excluding procedure time. ED Disposition Clinical Impression: Headache, Pain Disposition: DC-01 TO HOME OR SELFCARE Is pt being admited?: No Condition: Stable Instructions: Minor Head Injury (ED) Referrals: WILLIS CARLISLE [Primary Care Provider] - 3-5 Days [facility] [Provider Group] - 3-5 Days
--- NOTE | 2018-09-29 13:01 | Cat Scan Report ---
FINAL REPORT EXAM: CT HEAD/BRAIN WO CON HISTORY: headache, head injury TECHNIQUE: CT of the Head without IV contrast. PRIORS: CT head April 21, 2018. FINDINGS: Decreased attenuation regions in the periventricular and subcortical white matter are nonspecific and may represent small vessel ischemic disease, encephalopathy, edema, chronic trauma, or a demyelinati ng process. Possible chronic contusion or chronic ischemia in the left subinsular cortex. Vascular calcifications. There is no evidence for acute ischemia. There is no hemorrhage. There is no midline shift. There is no hydrocephalus. There is no mass. Age appropriate padilla-white matter attenuation is noted. There is no calvarial fracture. The temporal bones demonstrate aerated mastoid air cells. The middle ears appear unremarkable. Paranasal sinuses are unremarkable. Globes are intact. IMPRESSION: No acute intracranial findings. Nonspecific areas of decreased attenuation within white matter. Similar to prior.
[2018-09-29] MEDS ORDERED: TYLENOL PO ONE (13:49)
[2018-09-29 13:54] LABS: Basophils % (Auto) 0.7 % (0.0-1.8); Eosinophils % (Auto) 0.4 % (0.0-4.3); Hemoglobin 11.7 gm/dl (10.1-14.3); Lymphocytes # (Auto) 1.7 K/mm3 (1.2-5.4); Lymphocytes % (Auto) 32.9 % (13.4-35.0); Mean Corpuscular HGB Conc 33 % (30-34); Mean Corpuscular Volume 81 fl (79-97); Monocytes # (Auto) 0.4 K/mm3 (0.0-0.8); Platelet Count 366 K/mm3 (140-440); Red Blood Count 4.44 M/mm3 (3.65-5.03); Red Cell Distribution Width 16.2 % (13.2-15.2)
[2018-09-29 14:00] LABS: BUN/Creatinine Ratio 22; Blood Urea Nitrogen 13 mg/dL (7-17); Hemolysis Index 3
[2018-09-29 21:06] VITALS: BP 138/88
[2018-09-29 21:37] LABS: Bacteria,Urine 4+ /HPF (Negative); Bilirubin,Urine NEG (Negative); Blood,Urine NEG (Negative); Calcium Oxalate Crystals,Urine 1+; Color,Urine Yellow (Yellow); Mucus,Urine 2+ /HPF
[2018-09-29 21:38] LABS: WBC,Urine > 182.0 /HPF (0.0-6.0)
[2018-09-29] MEDS ORDERED: IBUPROFEN PO ONE (23:40)
[2018-09-30] MEDS ORDERED: BACTRIM DS PO ONE (05:29)
== END 2018-09-30 10:52 | disposition home or self-care (01) ==
LOC: ED 12:14
DX: R51 Headache (principal); M79.604 Pain in right leg; M79.605 Pain in left leg; I10 Essential (primary) hypertension; E11.9 Type 2 diabetes mellitus without complications; M19.90 Unspecified osteoarthritis, unspecified site; F20.9 Schizophrenia, unspecified; J45.909 Unspecified asthma, uncomplicated; Z79.899 Other long term (current) drug therapy; Z88.0 Allergy status to penicillin
CPT/HCPCS: 36415; 70450; 80048; 81001; 85025

== ENCOUNTER 2019-08-08 22:30 | Emergency (ER) | payer MEDICAID ==
--- NOTE | 2019-08-09 03:18 | Emergency Department Report ---
ED Extremity Problem HPI - General Chief complaint: Extremity Injury, Lower Stated complaint: LEG PAIN Time Seen by Provider: 08/09/19 03:11 Source: patient Mode of arrival: Ambulatory Limitations: No Limitations - History of Present Illness Initial comments: Sara is a 43-year-old female that presents emergency room with complaints of lower extremity pain and swelling. Patient states that her swelling going on for a week. Patient states her pain is a 5 out of 10. Patient states her pain is better with rest and worse with movement. Patient states that she is currently homeless and her sister put her out of her house. Patient denies history of DVT or PE. MD Complaint: extremity pain, extremity swelling -: Sudden Location: left, lower extremity History of Same: No Radiation: none Severity scale (0 -10): 5 Quality: aching Consistency: constant Improves with: rest Worsens with: walking, palpation Associated Symptoms: denies: chest pain, shortness of breath, fever, myalgias, arthralgias, rash - Related Data Previous Rx's Medication Instructions Recorded Last Taken Type ALBUTEROL NEB's [Proventil 0.083% 2.5 mg IH TID PRN #100 neb 04/08/18 Unknown Rx NEBS] ALBUTEROL Inhaler (OR & NICU) 2 puff IH Q4H PRN #1 inhalation 08/31/18 Unknown Rx [ProAir HFA Inhaler] ALBUTEROL NEB's [Proventil 0.083% 2.5 mg IH Q4HRT PRN #120 nebu 08/31/18 Unknown Rx NEBS] Acetaminophen [Acetaminophen TAB] 650 mg PO Q4H PRN #60 tablet 08/31/18 Unknown Rx Amlodipine Besylate 5 mg PO DAILY #30 08/31/18 Unknown Rx Docusate Sodium [Colace CAP] 100 mg PO BID #60 capsule 08/31/18 Unknown Rx Famotidine [Pepcid] 20 mg PO DAILY #30 tablet 08/31/18 Unknown Rx Lispro Insulin [HumaLOG] 6 unit SUB-Q ACHS #300 units 08/31/18 Unknown Rx levETIRAcetam [Keppra TAB] 1,500 mg PO BID 30 Days #60 tablet 08/31/18 Unknown Rx oxyCODONE /ACETAMINOPHEN [Percocet 1 tab PO Q8H PRN #30 tablet 08/31/18 Unknown Rx 5/325 mg] Ketorolac [Toradol] 10 mg PO Q6H PRN #20 tablet 09/29/18 Unknown Rx amLODIPine [Norvasc] 5 mg PO DAILY #30 tab 09/29/18 Unknown Rx Ciprofloxacin HCl [Ciprofloxacin 500 mg PO Q12H #14 tab 09/30/18 Unknown Rx TAB] Sulfamethoxazole/Trimethoprim 1 each PO BID #6 tablet 09/30/18 Unknown Rx [Bactrim DS TAB] HYDROcodone/APAP 5-325 [[place] 1 each PO Q6HR PRN #8 tablet 08/09/19 Unknown Rx 5-325 mg TAB] Allergies Allergy/AdvReac Type Severity Reaction Status Date / Time Penicillins Allergy Rash Verified 04/21/18 07:14 ED Review of Systems ROS: Stated complaint: LEG PAIN Other details as noted in HPI Constitutional: denies: chills, fever Eyes: denies: eye pain, eye discharge, vision change ENT: denies: ear pain, throat pain Respiratory: denies: cough, shortness of breath, wheezing Cardiovascular: denies: chest pain, palpitations Endocrine: no symptoms reported Gastrointestinal: denies: abdominal pain, nausea, diarrhea Genitourinary: denies: urgency, dysuria, discharge Musculoskeletal: denies: back pain, joint swelling, arthralgia Skin: denies: rash, lesions Neurological: denies: headache, weakness, paresthesias Psychiatric: denies: anxiety, depression Hematological/Lymphatic: denies: easy bleeding, easy bruising ED Past Medical Hx - Past Medical History Previous Medical History?: Yes Hx Hypertension: Yes Hx Congestive Heart Failure: No Hx Diabetes: Yes Hx Sickle Cell Disease: No Hx Arthritis: Yes Hx Seizures: Yes Hx Psychiatric Treatment: Yes (Schizophrenia) Hx Asthma: Yes Hx COPD: No Hx HIV: No Additional medical history: Multiple sclerosis - Surgical History Past Surgical History?: Yes Additional Surgical History: X3 - Family History Family history: no significant - Social History Smoking Status: Never Smoker Substance Use Type: None - Medications Home Medications: Home Medications Medication Instructions Recorded Confirmed Last Taken Type ALBUTEROL NEB's [Proventil 0.083% 2.5 mg IH TID PRN #100 neb 04/08/18 08/30/18 Unknown Rx NEBS] ALBUTEROL Inhaler (OR & NICU) 2 puff IH Q4H PRN #1 inhalation 08/31/18 Unknown Rx [ProAir HFA Inhaler] ALBUTEROL NEB's [Proventil 0.083% 2.5 mg IH Q4HRT PRN #120 nebu 08/31/18 Unknown Rx NEBS] Acetaminophen [Acetaminophen TAB] 650 mg PO Q4H PRN #60 tablet 08/31/18 Unknown Rx Amlodipine Besylate 5 mg PO DAILY #30 08/31/18 Unknown Rx Docusate Sodium [Colace CAP] 100 mg PO BID #60 capsule 08/31/18 Unknown Rx Famotidine [Pepcid] 20 mg PO DAILY #30 tablet 08/31/18 Unknown Rx Lispro Insulin [HumaLOG] 6 unit SUB-Q ACHS #300 units 08/31/18 Unknown Rx levETIRAcetam [Keppra TAB] 1,500 mg PO BID 30 Days #60 tablet 08/31/18 Unknown Rx oxyCODONE /ACETAMINOPHEN [Percocet 1 tab PO Q8H PRN #30 tablet 08/31/18 Unknown Rx 5/325 mg] Ketorolac [Toradol] 10 mg PO Q6H PRN #20 tablet 09/29/18 Unknown Rx amLODIPine [Norvasc] 5 mg PO DAILY #30 tab 09/29/18 Unknown Rx Ciprofloxacin HCl [Ciprofloxacin 500 mg PO Q12H #14 tab 09/30/18 Unknown Rx TAB] Sulfamethoxazole/Trimethoprim 1 each PO BID #6 tablet 09/30/18 Unknown Rx [Bactrim DS TAB] HYDROcodone/APAP 5-325 [[place] 1 each PO Q6HR PRN #8 tablet 08/09/19 Unknown Rx 5-325 mg TAB] ED Physical Exam - General Limitations: No Limitations General appearance: alert, in no apparent distress - Head Head exam: Present: atraumatic, normocephalic - Eye Eye exam: Present: normal appearance - ENT ENT exam: Present: mucous membranes moist - Neck Neck exam: Present: normal inspection - Respiratory Respiratory exam: Present: normal lung sounds bilaterally. Absent: respiratory distress, wheezes, rales - Cardiovascular Cardiovascular Exam: Present: regular rate, normal rhythm. Absent: systolic murmur, diastolic murmur, rubs, gallop - GI/Abdominal GI/Abdominal exam: Present: soft, normal bowel sounds. Absent: distended, tenderness, guarding, rebound - Rectal Rectal exam: Present: deferred - Extremities Exam Extremities exam: Present: normal inspection, full ROM, tenderness (left), pedal edema (left Lower ext), calf tenderness (left lower ext. ) - Back Exam Back exam: Present: normal inspection - Neurological Exam Neurological exam: Present: alert, oriented X3 - Psychiatric Psychiatric exam: Present: normal affect, normal mood - Skin Skin exam: Present: warm, dry, intact, normal color. Absent: rash ED Course Vital Signs 08/08/19 22:53 Temperature 98.2 F Pulse Rate 81 Respiratory 16 Rate Blood Pressure 162/88 O2 Sat by Pulse 99 Oximetry - Reevaluation(s) Reevaluation #1: I discussed ultrasound results the patient. Patient doesn't require further evaluation ER. Patient will be discharged home. Patient stable for discharge. I discussed discharge instructions patient. Patient voiced understanding of discharge instructions. 08/09/19 04:54 ED Medical Decision Making - Medical Decision Making pt is a 43-year-old female up since emergency room with complaints of left lower extremity swelling and pain. Patient had an ultrasound which was negative for a DVT. Patient stable for discharge. Patient's clinical findings consistent with lower extremity swelling and pain and lower extremity sprain. Patient given pain medications and discharged home. Patient stable for discharge. - Differential Diagnosis DVT. Lower extremity sprain. Pain and swelling of left lower extremity. Critical care attestation.: If time is entered above; I have spent that time in minutes in the direct care of this critically ill patient, excluding procedure time. ED Disposition Clinical Impression: Swelling of left lower extremity, Lower extremity sprain Lower extremity pain Qualifiers: Laterality: left Qualified Code(s): M79.605 - Pain in left leg Disposition: DC-01 TO HOME OR SELFCARE Is pt being admited?: No Does the pt Need Aspirin: No Condition: Stable Instructions: Ligament Sprain (ED) Additional Instructions: Patient to follow up with primary care in 2-3 days. Patient to return to ER if condition worsens. Patient to rest. Patient to elevate lower extremities. Patient to increase water. Patient ate a low-salt heart healthy diet. Patient to take Tylenol or ibuprofen when necessary for pain. Prescriptions: HYDROcodone/APAP 5-325 [[place] 5-325 mg TAB] 1 each PO Q6HR PRN #8 tablet PRN Reason: Pain Referrals: PRIMARY CARE, [Primary Care Provider] - 2-3 Days Time of Disposition: 04:57
--- NOTE | 2019-08-09 04:50 | Vascular Lab Report ---
DUPLEX DOPPLER LOWER EXTREMITY VEINS, LEFT INDICATION: Left lower extremity pain and swelling. TECHNIQUE: Duplex doppler imaging was performed through the veins of the left lower extremity using venous compr ession and other maneuvers. COMPARISON: No relevant prior imaging study available. FINDINGS: Common Femoral vein: Negative. Superficial Femoral vein: Negative. Popliteal vein: Negative. Calf veins: Negative. Additional findings: There is mild generalized edema. IMPRESSION: 1. No sonographic evidence for DVT in the left lower extremity. Signer Name: Wilton Elder MD Signed: 08/09/2019 4:45 AM Workstation Name: [id number]
[2019-08-09 07:33] VITALS: BP 155/70
== END 2019-08-09 07:33 | disposition home or self-care (01) ==
LOC: ED 22:30
DX: S86.912A Strain of unspecified muscle(s) and tendon(s) at lower leg level, left leg, initial encounter (principal); I10 Essential (primary) hypertension; E11.9 Type 2 diabetes mellitus without complications; M19.90 Unspecified osteoarthritis, unspecified site; F20.9 Schizophrenia, unspecified; Z98.890 Other specified postprocedural states; Z79.899 Other long term (current) drug therapy; Z88.0 Allergy status to penicillin; X58.XXXA Exposure to other specified factors, initial encounter; Y93.89 Activity, other specified; Y92.89 Other specified places as the place of occurrence of the external cause; Y99.8 Other external cause status